=== PATIENT | male | born 1945 | race Caucasian/White ===

== ENCOUNTER 2016-08-14 09:17 | Inpatient (IN) | payer OTHER, MEDICAID ==
[~2016-08-14] VITALS: Ht 167.6 cm; Wt 108.4 kg
[~2016-08-14 09:17] MED LIST: DEPAKOTE ER500 MG PO; DESYREL50 MG PO; FLOMAX0.4 MG PO; FOLATE1 MG PO; GEODON60 MG PO; IMODIUM2 MG PO; KLONOPIN0.5 MG PO; LEXAPRO10 MG PO; LIPITOR10 MG PO; LOMOTIL 0.025 M1 TA1 PO; MICROZIDE12.5 MG PO; NAMENDA XR14 MG PO; NEXIUM40 MG PO; NORCO 10/325 MG1 TAB PO; PROTONIX40 MG PO; ULTRAM50 MG PO; VASOTEC10 MG PO; WELLBUTRIN SR150 MG PO; ZESTRIL10 MG PO; ZOCOR20 MG PO
[2016-08-14 09:20] VITALS: BP 117/62
--- NOTE | 2016-08-14 09:20 | NUR ---
70/M 70 YO MALE BIB EMS FROM HOME FOR LEFT ARM PAIN FROM IV BEING REMOVED YESTERDAY. AWAKE AND ALERT. POOR HISTORIAN. WAITING FOR 'S ARRIVAL. LEFT AC REDNESS, TENDERAND FIRM. DENIES N/V/D; SKIN IS PINK/WARM/DRY; AAOX2 WITH EVEN AND STEADY GAIT; LUNGS CLEAR BL; HR EVEN AND REGULAR; PT DENIES ANY FEVER, CP, SOB, OR COUGH AT THIS TIME; PATIENT STATES PAIN OF 10/10 AT THIS TIME; VSS; PATIENT POSITIONED FOR COMFORT; HOB ELEVATED; BEDRAILS UP X2; BED DOWN. ER MD MADE AWARE OF PT STATUS. Addendum: 08/14/16 at 0958 by [facility] [employer] 70/M 70 YO MALE BIB EMS FROM HOME FOR LEFT ARM PAIN FROM IV BEING REMOVED YESTERDAY. AWAK AND ALERT. POOR HISTORIAN. WAITING FOR 'S ARRIVAL. LEFT AC REDNESS, TENDER AND FIRM. DENIES N/V/D; SKIN IS PINK/WARM/DRY. SCATTERED BRUISING TO BUE/BUE, SCAB TO RIGHT MEIDAL ANKLE. PITTING EDEMA +2 BLE; AAOX2. PT STATES AMBULATES AND USES WC AT HOME; LUNGS DIMINISHED THROUGHOUT BL; HR EVEN AND REGULAR; PT DENIES ANY FEVER, CP, SOB, OR COUGH AT THIS TIME; PATIENT STATES PAIN OF 10/10 AT THIS TIME; VSS; PATIENT POSITIONED FOR COMFORT; HOB ELEVATED; BEDRAILS UP X2; BED DOWN. ER MD MADE AWARE OF PT STATUS.
--- NOTE | 2016-08-14 09:23 | NUR ---
Patient being evaluated by physician at bedside.
[2016-08-14] MEDS ORDERED: KETOROLAC 60 MG/2 ML VIAL IM ONE (09:30)
--- NOTE | 2016-08-14 09:45 | NUR ---
US AT BEDSIDE.
[2016-08-14] MEDS ORDERED: ACETAMINOPHEN EXTRA STRENGTH 500 MG TAB PO ONE (10:00)
--- NOTE | 2016-08-14 10:07 | NUR ---
XRAY AT BEDSIDE.
--- NOTE | 2016-08-14 10:30 | NUR ---
LAB AT BEDSIDE.
--- NOTE | 2016-08-14 10:40 | NUR ---
PULSE OX REMAIN IN HIGH 70'S, LOW 80'S. HOB PLACED 90 DEGREES, CPT PROVIDED, PT ENCOURAGED TO DEEP BREATHE AND COUGH. PULSE STILL IN LOW 80'S. DR. DUDLEY MADE AWARE. NEW ORDER FOR OXYGEN.
--- NOTE | 2016-08-14 10:42 | NUR ---
RT NOTIFIED FOR ABG. PT ATTEMPTING TO URINATE. URINAL PLACED AT BEDSIDE.
--- NOTE | 2016-08-14 10:45 | NUR ---
2L VIA N/C PLACED ON PT, PULSE OX 96%
[2016-08-14] MEDS ORDERED: ACETAMINOPHEN 325 MG TAB PO PRN (11:30)
[2016-08-14] MEDS ORDERED: IPRATROPIUM 0.02% 0.5 MG/2.5 ML NEBU INH ONE (11:30)
[2016-08-14] MEDS ORDERED: ALBUTEROL 0.083% 2.5 MG/3 ML NEBU INH ONE (11:30)
[2016-08-14] MEDS ORDERED: MORPHINE SULFATE 2 MG/ML SYR IVP PRN (11:30)
[2016-08-14] MEDS ORDERED: HYDROcodone/APAP 7.5/325 MG 1 TAB PO PRN (11:30)
[2016-08-14] MEDS ORDERED: ONDANSETRON 4 MG/2 ML VIAL IVP PRN (11:30)
--- NOTE | 2016-08-14 11:41 | NUR ---
ADMITTING DX: ARM PAIN C/O SOB AWAKE AND ALERT RESPONSIVE TO ENGINEER [employer] DEPLOYMENT VERBAL COMMANDS IN [facility] POSITION EDUCATION PROVIDED TO PATIENT WITH ACKNOWLEDGEMENT ON HHN THERAPY AND RESPIRATORY DRUGS HHN THERAPY GIVEN AT THIS TIME ENCORAGED DEEP AND COUGH DURING THERAPY TOLERATED WELL WITHOUT INCIDENT
[2016-08-14] MEDS ORDERED: NACL 0.9% 1,000 ML IV ONE (12:00)
[2016-08-14] MEDS ORDERED: cefTRIAXone 1,000 MG VIAL ONE (12:39)
--- NOTE | 2016-08-14 13:36 | NUR ---
Patient will be admitted to care of DR. REARDON. Admited to TELE. Will go to room 111A. Belongings list completed. Report to CARLEEN MARES.
--- NOTE | 2016-08-14 13:40 | NUR ---
RECEIVED REPORT FROM THE ER NURSE SERGE FOR CONTINUITY OF CARE. PATIENT IS AWAKE, ALERT, ORIENTEDX4. UNABLE TO PROPERLY ASSES BECAUSE PATIENT IS IRRITATED STATING "I DON'T WANT TO ANSWER SO MANY QUESTION. I'M NOT FEELING GOOD". VITALS TAKEN AND WITHIN THE NORMAL LIMIT. ON 2L O2 VIA NASAL CANNULA. O2 SAT IS 94%. NO SOB. UNLABORED BREATHING. REDNESS ON THE LEFT AC AND BRUISES ON ABDOMEN AND UPPER EXTREMITIES OTHER DEJESUS SKIN INTACT. IV ON THE RIGHT UPPER FOREARM, INTACT AND PATENT. FLUID INFUSING WELL. ORIENTED TO THE ROOM AND CALL LIGHT. SAFETY MEASURE CHECKED AND WILL CONTINUE TO MONITOR. CALL LIGHT WITHIN REACH.
[2016-08-14] MEDS ORDERED: LORazepam 2 MG/ML VIAL IM/IVP SCH (15:12)
--- NOTE | 2016-08-14 15:12 | NUR ---
ATIVAN GIVEN PRIOR TO VQ SCAN. PATIENT TOLERATED WELL. FAMILY AT BEDSIDE. CALL LIGHT WITHIN REACH.
[2016-08-14] MEDS ORDERED: ALBUTEROL 0.083% 2.5 MG/3 ML NEBU INH PRN (16:15)
[2016-08-14] MEDS ORDERED: FUROSEMIDE 40 MG/4 ML VIAL IVP SCH (16:34)
[2016-08-14] MEDS: PIPER/TAZO 3.375GM/D5W PREMIX 50 ML IV SCH ×2 (17:12→23:59)
--- NOTE | 2016-08-14 17:53 | NUR ---
PATIENT HAD BOWEL MOVEMENT AND URINATE IN BED. CLEANED AND TURNED PATIENT. CALL LIGHT WITHIN REACH.
[2016-08-14] MEDS ORDERED: MAG SULF 2000 MG/WATER PREMIX 50 ML IV SCH (18:13)
[2016-08-14] MEDS ORDERED: SODIUM PHOS / POTASSIUM PHOS 1 PKT PDR PO SCH (18:16)
--- NOTE | 2016-08-14 18:55 | NUR ---
MAG RIDER GIVEN FOR LOW MAG OF 1.3L. PATIENT TOLERATING WELL. CALL LIGHT WITHIN REACH.
[2016-08-14] MEDS: ALBUTEROL 0.083% 2.5 MG/3 ML NEBU INH SCH (19:00)
[2016-08-14] MEDS: BUDESONIDE 0.5 MG/2 ML NEBU INH SCH (19:30)
--- NOTE | 2016-08-14 19:35 | NUR ---
ENDORSED PLAN OF CARE TO NIGHT RN. PT REMAINS IN STABLE CONDITION.
--- NOTE | 2016-08-14 19:36 | NUR ---
RECEIVED REPORT FROM DAY NURSEMARGIE) AND MICHELLE. PATIENT RESTING IN BED. NO RESPIRATORY DISTRESS, SOB, OR DISCOMFORT. INITIAL ASSESSMENT AND BODY CHECK DONE. PATIENT IS AOX3, PERIODS OF CONFUSION. SKIN IS INTACT, REDNESS NOTED TO LEFT AC AREA, IV ACCESS TO RIGHT FOREARM 20G, PATENT. DISCUSSED PLAN OF CARE, MEDICATION REGIMENT, AND PAIN MANAGEMENT WITH PATIENT. PLACED PATIENT ON SAFETY/FALL PRECAUTIONS. CALL LIGHT LEFT WITHIN REACH, WILL CONTINUE TO MONITOR.
--- NOTE | 2016-08-14 19:38 | NUR ---
PT REFUSED HIS TX. NO DISTRESS/SOB NOTED AT THIS TIME. WILL CONTINUE TO MONITOR.
[2016-08-14 20:00] VITALS: BP 129/65
[2016-08-14] MEDS: SACCHAROMYCES 250 MG CAP PO SCH (21:10)
[2016-08-14] MEDS: MEMANTINE 10 MG TAB PO SCH (21:10)
[2016-08-14] MEDS: ENALAPRIL 10 MG TAB PO SCH (21:10)
[2016-08-14] MEDS: ATORVASTATIN 20 MG TAB PO SCH (21:11)
[2016-08-14] MEDS: clonazePAM 0.5 MG TAB PO SCH (21:12)
--- NOTE | 2016-08-14 22:05 | NUR ---
PATIENT IN BED, SLEEPING. NO RESPIRATORY DISTRESS, SOB, OR DISCOMFORT. CALL LIGHT LEFT WITHIN REACH, WILL CONTINUE TO MONITOR.
--- NOTE | 2016-08-14 23:10 | NUR ---
PT REFUSED TX AGAIN. SAT 93% ON 2 L NC. HR 1036. RN NONA AWARE. WILL CONTINUE TO MONITOR.
[2016-08-15] VITALS: BP 123/60
[2016-08-15] MEDS: ALBUTEROL 0.083% 2.5 MG/3 ML NEBU INH SCH ×4 (00:37→20:02)
--- NOTE | 2016-08-15 00:56 | NUR ---
PATIENT ASLEEP. NO RESPIRATORY DISTRESS, SOB, OR DISCOMFORT. CALL LIGHT LEFT WITHIN REACH, WILL CONTINUE TO MONITOR.
--- NOTE | 2016-08-15 03:03 | NUR ---
PATIENT SLEEPING. NO RESPIRATORY DISTRESS, SOB, OR DISCOMFORT. CALL LIGHT LEFT WITHIN REACH, WILL CONTINUE TO MONITOR.
[2016-08-15 04:00] VITALS: BP 114/51
[2016-08-15] MEDS: PIPER/TAZO 3.375GM/D5W PREMIX 50 ML IV SCH ×4 (05:29→23:30)
--- NOTE | 2016-08-15 06:06 | NUR ---
PATIENT IN BED, ASLEEP. NO RESPIRATORY DISTRESS, SOB, OR DISCOMFORT. CALL LIGHT LEFT WITHIN REACH, WILL CONTINUE TO MONITOR.
--- NOTE | 2016-08-15 07:05 | NUR ---
REPORT GIVEN TO DAY NURSE, CELESTE (MARCIA) AND ALMA. PATIENT RESTING IN BED, STABLE. NO RESPIRATORY DISTRESS, SOB, OR DISCOMFORT. ALL NEEDS ATTENDED TO DURING SHIFT, CALL LIGHT LEFT WITHIN REACH.
--- NOTE | 2016-08-15 07:08 | NUR ---
RECEIVED PT FROM NONA Ramesh RN ASLEEP BUT EASILY AWAKEN. NO S/S OF RESPIRATORY DISTRESS OR DISCOMFORT. AAOX3, NO S/S OF RESPIRATORY DISTRESS OR DISCOMFORT. WITH IV ACCESS ON RIGHT UPPER FOREARM 20G PATENT AND INTACT. INITIAL ASSESSMENT DONE, SAFETY PRECAUTIONS ENFORCED, PT VERBALIZED UNDERSTANDING. CALL LIGHT WITHIN REACH, WILL CONTINUE TO MONITOR.
[2016-08-15] MEDS: BUDESONIDE 0.5 MG/2 ML NEBU INH SCH ×2 (07:29→19:30)
--- NOTE | 2016-08-15 07:30 | NUR ---
PT REFUSED BREATHING TX AT THIS TIME. PT NOT SOB AND NOT IN RESPIRATORY DISTRESS. PT IS ON 3L NASAL CANNULA SPO2 95%. WILL CONTINUE TO MONITOR.
[2016-08-15 08:00] VITALS: BP 143/72
[2016-08-15] MEDS: FUROSEMIDE 40 MG/4 ML VIAL IVP SCH (08:46)
[2016-08-15] MEDS: clonazePAM 0.5 MG TAB PO SCH ×2 (08:51→20:25)
[2016-08-15] MEDS: SACCHAROMYCES 250 MG CAP PO SCH ×2 (08:52→20:23)
[2016-08-15] MEDS: ESCITALOPRAM 20 MG TAB PO SCH (08:53)
[2016-08-15] MEDS: PANTOPRAZOLE 40 MG TABEC PO SCH (08:54)
[2016-08-15] MEDS: ENALAPRIL 10 MG TAB PO SCH ×2 (08:55→20:24)
[2016-08-15] MEDS: FOLIC ACID 1 MG TAB PO SCH (08:56)
[2016-08-15] MEDS: FAMOTIDINE 20 MG TAB PO SCH (09:00)
[2016-08-15] MEDS: MEMANTINE 10 MG TAB PO SCH ×2 (09:00→20:23)
--- NOTE | 2016-08-15 09:00 | NUR ---
PT ASLEEP BUT EASILY AWAKENED. DUE MEDS GIVEN, PT TOLERATED WELL. CALL LIGHTS WITHIN REACH, WILL CONTINUE TO MONITOR.
[2016-08-15] MEDS: DOCUSATE SODIUM 100 MG GELCAP PO SCH (09:02)
[2016-08-15] MEDS: SODIUM PHOS / POTASSIUM PHOS 1 PKT PDR PO SCH ×3 (09:03→17:14)
--- NOTE | 2016-08-15 09:18 | NUR ---
PATIENT HAS BEEN SCREENED AND CATEGORIZED MODERATE NUTRITION RISK. PATIENT WILL BE SEEN WITHIN 3-5 DAYS OF ADMISSION. 08/16/16-08/18/[address]
--- NOTE | 2016-08-15 10:08 | NUR ---
PT SLEEPING BUT EASILY AWAKENED. CALL LIGHT WITHIN REACH, WILL CONTINUE TO MONITOR.
[2016-08-15] MEDS ORDERED: NACL 0.9% 1,000 ML IV SCH (10:25)
[2016-08-15 12:00] VITALS: BP 132/84
[2016-08-15] MEDS ORDERED: POTASSIUM CHLORIDE 40 MEQ, LIDOCAINE 1% 25 MG in NACL 0.9% 250 ML IV SCH (12:00)
--- NOTE | 2016-08-15 12:07 | NUR ---
FAXED INITIAL REVIEW TO [facility] [phone] PHONE SHAYY HUMPHRIES [phone]
--- NOTE | 2016-08-15 12:15 | NUR ---
PT AWAKE SITTING ON BED WITH RELATIVES AT BEDSIDE. AAOX3 WITH PERIODS OF CONFUSION, NO S/S OF RESPIRATORY DISCOMFORT. CALL LIGHT WITHIN REACH, WILL CONTINUE TO MONITOR.
--- NOTE | 2016-08-15 14:05 | NUR ---
PT ASLEEP BUT EASILY AWAKEN. NO S/S OF RESPIRATORY DISTRESS OR DISCOMFORT. ALL NEEDS MET AT THIS TIME. CALL LIGHT WITHIN REACH. WILL CONTINUE TO MONITOR
--- NOTE | 2016-08-15 14:58 | NUR ---
SPOKE TO DR. CARLOS REGARDING BLOOD CULTURE. TO SEE PT
--- NOTE | 2016-08-15 15:30 | NUR ---
URINE SAMPLE OBTAINED. KEPT PT CLEAN AND DRY. NO S/S OF RESPIRATORY DISCOMFORT. CALL LIGHT WITHIN REACH, WILL CONTINUE TO MONITOR.
[2016-08-15 16:00] VITALS: BP 119/66
--- NOTE | 2016-08-15 17:15 | NUR ---
PT ASLEEP BUT EASILY AWAKEN. DUE MEDS GIVEN, PT TOLERATED WELL. KEPT CLEAN AND DRY. ALL NEEDS MET AT THIS TIME. CALL LIGHT WITHIN REACH, WILL CONTINUE TO MONITOR.
[2016-08-15] MEDS ORDERED: TAMSULOSIN 0.4 MG CAP PO SCH (17:30)
--- NOTE | 2016-08-15 19:06 | NUR ---
ENDORSED PT TO Gadiel CASTELLANO RN FOR CONTINUITY OF CARE IN STABLE CONDITION.
--- NOTE | 2016-08-15 19:10 | NUR ---
REPORT RECEIVED FROM DAY NURSECELESTE ([facility]) AND ALMA. PATIENT RESTING IN BED. NO RESPIRATORY DISTRESS, SOB, OR DISCOMFORT. INITIAL ASSESSMENT AND BODY CHECK DONE. PATIENT IS AOX3, WITH PERIODS OF CONFUSION, SKIN IS INTACT, IV ACCESS TO RIGHT FOREARM 20G, PATENT. PATIENT DENIES ANY PAIN AT THIS TIME. DISCUSSED PLAN OF CARE, MEDICATION REGIMENT, AND PAIN MANAGEMENT WITH PATIENT. PLACED PATIENT ON SAFETY/FALL PRECAUTIONS. CALL LIGHT LEFT WITHIN REACH, WILL CONTINUE TO MONITOR.
[2016-08-15 20:00] VITALS: BP 120/66
--- NOTE | 2016-08-15 20:03 | NUR ---
PT ASSESSMENT DONE, AWAKE, ALERT, REFUSED HHNTX AT THIS TIME. PT ON 3LPM NC, TOLERATING WELL, NO RESP DISTRESS NOTED. SP02 95%. PT WILL CALL IF WANTS HHNTX. NONA DURANT AWARE.
[2016-08-15] MEDS: ATORVASTATIN 20 MG TAB PO SCH (20:23)
--- NOTE | 2016-08-15 22:10 | NUR ---
PATIENT IN BED, SLEEPING. NO RESPIRATORY DISTRESS, SOB, OR DISCOMFORT. CALL LIGHT LEFT WITHIN REACH, WILL CONTINUE TO MONITOR.
[2016-08-16] VITALS: BP 119/81
[2016-08-16] MEDS: ALBUTEROL 0.083% 2.5 MG/3 ML NEBU INH SCH ×2 (01:00→06:53)
--- NOTE | 2016-08-16 01:07 | NUR ---
PATIENT ASLEEP. NO RESPIRATORY DISTRESS, SOB, OR DISCOMFORT. CALL LIGHT LEFT WITHIN REACH, WILL CONTINUE TO MONITOR.
--- NOTE | 2016-08-16 03:20 | NUR ---
ASSISTED MORTGAGE ADVISOR'S, BLANCA AND TANIKA, WITH PATIENT CLEAN UP AND LINEN CHANGE. PATIENT TOLERATED WELL. NO RESPIRATORY DISTRESS, SOB, OR DISCOMFORT. CALL LIGHT LEFT WITHIN REACH, WILL CONTINUE TO MONITOR.
[2016-08-16 04:00] VITALS: BP 135/77
[2016-08-16] MEDS: PIPER/TAZO 3.375GM/D5W PREMIX 50 ML IV SCH (05:32)
--- NOTE | 2016-08-16 06:02 | NUR ---
PATIENT SLEEPING. NO RESPIRATORY DISTRESS, SOB, OR DISCOMFORT. CALL LIGHT LEFT WITHIN REACH, WILL CONTINUE TO MONITOR.
[2016-08-16] MEDS: BUDESONIDE 0.5 MG/2 ML NEBU INH SCH (06:53)
--- NOTE | 2016-08-16 06:53 | NUR ---
PT REFUSED BREATHING TX AND ABG AT THIS TIME. PT NOT SOB AND NOT IN RESPIRATORY DISTRESS AT THIS TIME. EXPLAINED INDICATIONS FOR BOTH PT STILL REFUSED. WILL CONTINUE TO MONITOR.
--- NOTE | 2016-08-16 07:05 | NUR ---
REPORT GIVEN TO DAY NURSE, DUDLEY. PATIENT RESTING IN BED, STABLE. NO RESPIRATORY DISTRESS, SOB, OR DISCOMFORT. ALL NEEDS ATTENDED TO DURING SHIFT, CALL LIGHT LEFT WITHIN REACH.
--- NOTE | 2016-08-16 07:06 | NUR ---
PT ALERT AND RESPONSIVE WITH PERIODS OF CONFUSION. BREATHING EVENLY AND UNLABORED, WITH O2 AT 2L/MIN VIA NC. NO SIGNS OF ACUTE DISTRESS. SKIN IS WARM AND DRY. OFFLOAD TO PRESSURE AREAS. NO SIGNS OF ANY BOWEL/BLADDER DISCOMFORT. DENIES OF ANY PAIN OR DISCOMFORT AT THIS TIME. ALL NEEDS ATTENDED, SAFETY PRECAUTIONS MAINTAINED. CALL LIGHT WITHIN REACH.
[2016-08-16 07:49] VITALS: BP 127/70
--- NOTE | 2016-08-16 08:23 | NUR ---
ABG RESULTS GIVEN TO NO NEW ORDERS REQUESTED BY PHYSICIAN.
[2016-08-16] MEDS: DOCUSATE SODIUM 100 MG GELCAP PO SCH (08:43)
[2016-08-16] MEDS: ESCITALOPRAM 20 MG TAB PO SCH (08:43)
[2016-08-16] MEDS: clonazePAM 0.5 MG TAB PO SCH (08:44)
[2016-08-16] MEDS: FAMOTIDINE 20 MG TAB PO SCH (08:44)
[2016-08-16] MEDS: FOLIC ACID 1 MG TAB PO SCH (08:44)
[2016-08-16] MEDS: SACCHAROMYCES 250 MG CAP PO SCH (08:44)
[2016-08-16] MEDS: ENALAPRIL 10 MG TAB PO SCH (08:44)
[2016-08-16] MEDS: PANTOPRAZOLE 40 MG TABEC PO SCH (08:44)
[2016-08-16] MEDS: MEMANTINE 10 MG TAB PO SCH (08:44)
[2016-08-16] MEDS: SODIUM PHOS / POTASSIUM PHOS 1 PKT PDR PO SCH (08:45)
[2016-08-16] MEDS: FUROSEMIDE 40 MG/4 ML VIAL IVP SCH (08:46)
[2016-08-16] MEDS ORDERED: CHLORHEXADINE GLUC 2% CLOTH TP SCH (09:00)
--- NOTE | 2016-08-16 09:33 | NUR ---
PT REQUESTS TO SIGN AMA, EXPLAINED RISKS AND BENEFITS AT BEDSIDE WITH DR. PINEDA. PT VERBALIZED UNDERSTANDING. SIGNED AMA AND PT'S TO PICKUP PATIENT WITHIN 1 HOUR PER PT.
[2016-08-16] MEDS ORDERED: MUPIROCIN 2% OINT 22 GM TUBE TP SCH (10:00)
--- NOTE | 2016-08-16 10:30 | NUR ---
PT LEFT UNIT WITH VIA WC. IV LINE TELE LEADS AND WRIST BANDS REMOVED. PERSONAL BELONGINGS WITH PT UPON LEAVING UNIT.
[2016-08-16] MEDS ORDERED: HYDRAGUARD CREAM TP SCH (13:00)
== END 2016-08-16 10:30 | disposition left against medical advice (07) | DRG 177 ==
LOC: MED 09:17 → MTU 11:18
PROVIDERS: ADMIT Family Medicine; ATTEND Family Medicine
DX: J69.0 Pneumonitis due to inhalation of food and vomit (principal); E43 Unspecified severe protein-calorie malnutrition; J96.21 Acute and chronic respiratory failure with hypoxia; J90 Pleural effusion, not elsewhere classified; I80.8 Phlebitis and thrombophlebitis of other sites; F31.9 Bipolar disorder, unspecified; F03.90 Unspecified dementia, unspecified severity, without behavioral disturbance, psychotic disturbance, mood disturbance, and anxiety; E66.9 Obesity, unspecified; E87.6 Hypokalemia; E83.51 Hypocalcemia; E83.42 Hypomagnesemia; E83.39 Other disorders of phosphorus metabolism; N40.0 Benign prostatic hyperplasia without lower urinary tract symptoms; E11.9 Type 2 diabetes mellitus without complications; F20.9 Schizophrenia, unspecified; K21.9 Gastro-esophageal reflux disease without esophagitis; I11.0 Hypertensive heart disease with heart failure; I50.9 Heart failure, unspecified; J44.9 Chronic obstructive pulmonary disease, unspecified; Z71.3 Dietary counseling and surveillance; Z91.19 Patient's noncompliance with other medical treatment and regimen; Z90.49 Acquired absence of other specified parts of digestive tract; Z68.38 Body mass index [BMI] 38.0-38.9, adult; Z88.2 Allergy status to sulfonamides; Z79.899 Other long term (current) drug therapy

== ENCOUNTER 2016-08-22 10:05 | Inpatient (IN) | payer OTHER, MEDICAID ==
[~2016-08-22] VITALS: Ht 167.6 cm; Wt 107.5 kg
[2016-08-22 10:10] VITALS: BP 135/78
--- NOTE | 2016-08-22 10:15 | NUR ---
PT BIBA TO ER BED 01.
--- NOTE | 2016-08-22 10:15 | NUR ---
Note undone in EDM - 08/22/16 at 1131 by MEDCHINMAYF PATIENT PRESENTS TO ED WITH [] . PT STATES [] . DENIES N/V/D; SKIN IS PINK/WARM/DRY; AAOX4 WITH EVEN AND STEADY GAIT; LUNGS CLEAR BL; HR EVEN AND REGULAR; PT DENIES ANY FEVER, CP, SOB, OR COUGH AT THIS TIME; PATIENT STATES PAIN OF 0/10 AT THIS TIME; VSS; PATIENT POSITIONED FOR COMFORT; HOB ELEVATED; BEDRAILS UP X2; BED DOWN. ER MADE AWARE OF PT STATUS. PT BIBA DUE TO ALOC.FAMILY STATES PATIENT WAS UNRESPONSIVE "FOR 10 SECONDS" PER EMS. Hx HTN, DEPRESSION, AND HYPERCHOLESTEROLEMIA; TAKES LISINOPRIL AND SIMVASTATIN. HAS MULTIPLE BRUISES ON RIGHT ABDOMEN. BALNCAHBLE REDNESS ON LEFT ARM.PT IS AA AND CONFUSE. WITH SLIGHT EDEMA ON BOTH FEET.SKIN IS PINK/WARM/DRY,EVEN AND STEADY GAIT; LUNGS CLEAR BL; HR EVEN AND REGULAR; NO COUGH COUGH AT THIS TIME; PATIENT STATES PAIN IN ARM OF 10/10 AT THIS TIME; PATIENT POSITIONED FOR COMFORT; HOB ELEVATED; BEDRAILS UP X2; BED DOWN. PETR FRANCO MADE AT BEDSIDE. Addendum: 08/22/16 at 1105 by MEDTRF Amendment undone in EDM - 08/22/16 at 1131 by MEDTRF PT BIBA DUE TO ALOC.FAMILY STATES PATIENT WAS UNRESPONSIVE "FOR 10 SECONDS" PER EMS. Hx HTN, DEPRESSION, AND HYPERCHOLESTEROLEMIA; TAKES LISINOPRIL AND SIMVASTATIN. HAS MULTIPLE BRUISES ON RIGHT ABDOMEN. BLANCAHABLE REDNESS ON LEFT ARM.PT IS AA AND CONFUSE. WITH SLIGHT EDEMA ON BOTH FEET.SKIN IS PINK/WARM/DRY; LUNGS CLEAR BL; HR EVEN AND REGULAR;PATIENT STATES PAIN OF 10/10 AT THIS TIME; PATIENT POSITIONED FOR COMFORT; HOB ELEVATED; BEDRAILS UP X2; BED DOWN. ER MD AT BEDSIDE.
--- NOTE | 2016-08-22 10:15 | NUR ---
PT BIBA DUE TO ALOC.FAMILY STATES PATIENT WAS UNRESPONSIVE "FOR 10 SECONDS" PER EMS. Hx HTN, DEPRESSION, AND HYPERCHOLESTEROLEMIA; TAKES LISINOPRIL AND SIMVASTATIN. HAS MULTIPLE BRUISES ON RIGHT ARM AND ABDOMEN. BLANCAHABLE REDNESS ON LEFT ARM.PT IS AA AND CONFUSE. WITH SLIGHT EDEMA ON BOTH FEET.SKIN IS PINK/WARM/DRY; LUNGS CLEAR BL; HR EVEN AND REGULAR;PATIENT STATES PAIN OF 10/10 AT THIS TIME; PATIENT POSITIONED FOR COMFORT; HOB ELEVATED; BEDRAILS UP X2; BED DOWN. ER MD AT BEDSIDE.
--- NOTE | 2016-08-22 10:35 | NUR ---
Patient being evaluated by physician at bedside.
--- NOTE | 2016-08-22 10:52 | NUR ---
X RAY AT BEDSIDE
--- NOTE | 2016-08-22 11:14 | NUR ---
TALKED TO DR HERNANDEZ ,PER DR DENTON JUST DO IN AMD OUT.
--- NOTE | 2016-08-22 11:21 | NUR ---
DR. HERNANDEZ AWARE OF THE RESULT OF URINE DIPSTICK
--- NOTE | 2016-08-22 11:27 | NUR ---
PT AA. NO ACUTE DISTRESS NOTED. PT WENT TO CT SCAN.
--- NOTE | 2016-08-22 11:30 | NUR ---
IN AND OUT CATH DONE , NO BLEEDING NOTED
--- NOTE | 2016-08-22 11:32 | NUR ---
PT WENT TO CT VIA [facility] [employer] BY [employer].
[2016-08-22] MEDS ORDERED: hePARIN / DEXT 5% PREMIX 250 ML IV ONE (12:15)
[2016-08-22] MEDS ORDERED: CLOPIDOGREL 75 MG TAB PO ONE (12:15)
[2016-08-22] MEDS ORDERED: HEPARIN PER PHARMACY MC PRN ×2 (12:15→13:15)
[2016-08-22] MEDS ORDERED: VANCOMYCIN 1,000 MG in DEXTROSE 5% 250 ML IV ONE (12:35)
[2016-08-22] MEDS ORDERED: PIPERACILLIN/TAZOBACTAM 3.375 GM in DEXTROSE 5% 50 ML IV ONE (12:35)
--- NOTE | 2016-08-22 12:36 | NUR ---
US AT BEDSIDE
[2016-08-22] MEDS ORDERED: PIPERACILLIN/TAZOBACTAM 3.375 GM VIAL IV ONE (12:42)
--- NOTE | 2016-08-22 13:01 | NUR ---
TALKED TO DR. SULLIVAN HE SAID HE WILL ORDER THE HEPARIN IN THE FLOOR,MADE AWARE IV ZOSYN ONGOING AT THIS TIME FOR LEFT ARM CELLULITIS,PHARMACIST JUSTICE KUMAR
--- NOTE | 2016-08-22 13:02 | NUR ---
CALL PLACE TO TELE SPOKE TO ADA FOR REPORT WILL CALL ME BACK
[2016-08-22] MEDS ORDERED: hePARIN / DEXT 5% PREMIX 250 ML IV SCH ×2 (13:15→13:32)
--- NOTE | 2016-08-22 13:24 | NUR ---
REPORT GIVEN TO ADA IN TELE, TRANSFER PT TO TELE AA WITH FORGETFULNESS, NO DISTRESS, SKIN WARM TO TOUCH RESP. EVEN AND UNLABORED.
--- NOTE | 2016-08-22 13:35 | NUR ---
ADMITTED PATIENT FROM ER, COMING VIA GURNEY . WITH 02 VIA UT, NO DISTRESS NOTED.PATIENT AWAKE, ALERT , FORGETFUL ( HAS HX OF DEMENTIA) . WITH IV FLUIDS INFUSING WELL. HAS EDEMA AND REDNESS LEFT ARM . EDEMA BOTH LEGS. DENIES PAIN AT THIS TIME . UNIT ORIENTATION DONE. NPO . WILL CONTINUE MONITORING.
--- NOTE | 2016-08-22 13:50 | NUR ---
PT REFUSED ABG AT THIS TIME DR SULLIVAN AWARE
[2016-08-22] MEDS: NACL 0.9% 1,000 ML IV SCH (14:12)
[2016-08-22] MEDS ORDERED: VANCOMYCIN 1GM/DEXT 5% PREMIX 200 ML IV SCH (14:20)
[2016-08-22 16:00] VITALS: BP 143/73
--- NOTE | 2016-08-22 16:00 | NUR ---
PERINEAL CARE DONE AFTER PATIENT HAD BM.
[2016-08-22] MEDS: LEVOFLOXACIN 750 MG/D5W PREMIX 150 ML IV SCH (16:14)
[2016-08-22] MEDS ORDERED: LOPERAMIDE 2 MG CAP PO SCH (16:55)
[2016-08-22] MEDS ORDERED: HYDROcodone/APAP 10/325 MG 1 TAB TAB PO PRN (16:55)
[2016-08-22] MEDS ORDERED: HYDROcodone/APAP 10/325 MG 1 TAB TAB PO SCH (16:55)
[2016-08-22] MEDS ORDERED: DIPHENOXYLATE /ATROPINE 2.5 MG TAB PO PRN (17:00)
--- NOTE | 2016-08-22 17:00 | NUR ---
FAMILY AT BEDSIDE.
--- NOTE | 2016-08-22 18:30 | NUR ---
CHARU/KIDNEY US IN PROGRESS.
--- NOTE | 2016-08-22 19:30 | NUR ---
REPORT GIVEN AT BEDSIDE TO GABRIELLA STEWARD , FOR CONTINUITY OF CARE.
--- NOTE | 2016-08-22 19:35 | NUR ---
PT WAS CLEANED BY JANAY MARCUS AND JANAY VILLANUEVA AND WAS TURNED AND REPOSITIONED AND THEN CONDOM CATHETER WAS PLACED ON THE PATIENT AND CONNECTED TO A URINE DRAINAGE BAG.PT TOLERATED PROCEDURE WELL.WILL CONTINUE TO MONITOR URINE OUTPUT.PT DENIES PAIN AT THIS TIME.NO SOB REPORTED BY THE PATIENT.NO COMPLAINS OF CHEST PAIN REPORTED EITHER.FALL PRECAUTIONS IMPLEMENTED.CALL LIGHT WITHIN REACH.
--- NOTE | 2016-08-22 20:00 | NUR ---
Patient's Plan of Care was discussed and reviewed with TRANSITION SPECIALIST: NICHELLE GALEANO.
[2016-08-22 20:15] VITALS: BP 98/74
[2016-08-22] MEDS: DIVALPROEX 500 MG TABEC PO SCH (20:45)
[2016-08-22] MEDS: buPROPion 150 MG TABER PO SCH (20:45)
[2016-08-22] MEDS: SACCHAROMYCES 250 MG CAP PO SCH (20:45)
--- NOTE | 2016-08-22 20:45 | NUR ---
PT TOOK HIS ROUTINE MEDICATION WELL AND DRANK SOME WATER.WILL CONTINUE TO MONITOR.CALL LIGHT WITHIN REACH.
[2016-08-22] MEDS: traMADol 50 MG TAB PO SCH (20:46)
[2016-08-22] MEDS: SIMVASTATIN 20 MG TAB PO SCH (20:46)
[2016-08-22] MEDS: traZODone 50 MG TAB PO SCH (20:46)
[2016-08-22] MEDS: clonazePAM 0.5 MG TAB PO SCH (20:48)
[2016-08-22] MEDS ORDERED: ENALAPRIL 10 MG TAB PO SCH (21:00)
[2016-08-22] MEDS ORDERED: ZIPRASIDONE 40 MG CAP PO SCH (21:00)
[2016-08-22] MEDS ORDERED: ATORVASTATIN 20 MG TAB PO SCH (21:00)
--- NOTE | 2016-08-22 21:25 | NUR ---
MD ROGERS CAME TO SEE THE PATIENT.
[2016-08-22] MEDS: CLINDAMYCIN 600 MG in DEXTROSE 5% 50 ML IV SCH (22:29)
--- NOTE | 2016-08-22 22:30 | NUR ---
NEW IV LINE WAS RESTARTED TO PT'S RT ANTERIOR FOREARM G#22 AT FIRST ATTEMPT WITH GOOD BLOOD RETURN AND THRU THIS LINE PT WILL RECEIVE HIS ANTIBIOTIC BY CARLEEN TREVINO SHE HAS BEEN INFORMED THAT PT HAS ANOTHER IV LINE.
--- NOTE | 2016-08-23 00:48 | NUR ---
PT SLEEPING IN BED AT THIS TIME,HEPARIN INFUSING WELL,NO PAIN OR DISCOMFORT NOTED.WILL CONTINUE TO MONITOR.CALL LIGHT WITHIN REACH.
[2016-08-23 00:55] VITALS: BP 111/65
[2016-08-23] MEDS: NACL 0.9% 1,000 ML IV SCH ×4 (01:11→15:55)
--- NOTE | 2016-08-23 02:38 | NUR ---
PT IS CURRENTLY ASLEEP IN BED,HEPARIN DRIP INFUSING WELL,NEEDS MET,BED ALARM ON WILL CONTINUE TO MONITOR.
[2016-08-23] MEDS: CLINDAMYCIN 600 MG in DEXTROSE 5% 50 ML IV SCH ×3 (04:04→20:25)
[2016-08-23 04:40] VITALS: BP 118/60
--- NOTE | 2016-08-23 06:00 | NUR ---
PT STABLE RESTING IN BED HEPARIN ONGOING.NO COMPLAINS OF PAIN OR DISCOMFORT.ENDORSED TO CARLEEN JONES SHE WILL RESUME CARE OF THE PATIENT. Addendum: 08/23/16 at 0730 by Chandrika Estrella LVN PT WAS ACTUALLY ENDORSED AT 07 TO CARLEEN JONES.
[2016-08-23] MEDS: traMADol 50 MG TAB PO SCH ×3 (06:21→20:57)
[2016-08-23] MEDS: PANTOPRAZOLE 40 MG TABEC PO SCH (06:23)
[2016-08-23] MEDS ORDERED: MAG SULF 2000 MG/WATER PREMIX 50 ML IV SCH (07:00)
[2016-08-23] MEDS ORDERED: POTASSIUM CHLORIDE 10 MEQ TABER PO SCH (07:00)
--- NOTE | 2016-08-23 07:25 | NUR ---
PT STABLE SLEEPING HEPARIN ONGOING REPORT ENDORSED AT BEDSIDE TO CARLEEN JONES.
--- NOTE | 2016-08-23 07:25 | NUR ---
RECEIVED REPORT FROM NIGHT NURSE. PT IS AAPX3, RIGHT IV 18 G HEP DRIP, INFUSING WELL. RIGHT FA 22G IVF INFUSING WELL, O2 2L VIA NC, SKIN INTACT, SWOLLEN LEFT ARM, BLE EDEMA , REVIEWED PLAN OF CARE WITH PT, PT VERBALIZED UNDERSTANDING, INITIAL ASSESSMENT COMPLETED, ALL SAFETY/FALL PRECAUTIONS MET, ALL NEEDS MET, CALL LIGHT WITHIN REACH, WILL CONTINUE TO MONITOR.
[2016-08-23 08:00] VITALS: BP 110/65
[2016-08-23] MEDS ORDERED: POTASSIUM CHLORIDE 40 MEQ, LIDOCAINE 1% 25 MG in NACL 0.9% 250 ML IV ONE (08:05)
[2016-08-23] MEDS ORDERED: MAG SULF 2000 MG/WATER PREMIX 50 ML IV ONE (08:05)
--- NOTE | 2016-08-23 08:14 | NUR ---
PATIENT HAS BEEN SCREENED AND CATEGORIZED MODERATE NUTRITION RISK. PATIENT WILL BE SEEN WITHIN 3-5 DAYS OF ADMISSION. 08/25/16-08/27/[address]
[2016-08-23] MEDS: ESCITALOPRAM 20 MG TAB PO SCH (08:35)
[2016-08-23] MEDS: FOLIC ACID 1 MG TAB PO SCH (08:35)
[2016-08-23] MEDS: buPROPion 150 MG TABER PO SCH ×2 (08:35→20:57)
[2016-08-23] MEDS: SACCHAROMYCES 250 MG CAP PO SCH ×2 (08:35→20:57)
--- NOTE | 2016-08-23 08:35 | NUR ---
DUE MEDICATIONS GIVEN, PT TOLERATED WELL, LISINOPRIL WAS NOT GIVEN BP 110/65, NO S/S OF RESPIRATORY DISTRESS NOTED, PT DENIES ANY SOB OR CHEST PAIN, ALL NEEDS MET, CALL LIGHT WITHIN REACH WILL CONTINUE TO MONITOR.
[2016-08-23] MEDS: DIVALPROEX 500 MG TABEC PO SCH ×2 (08:36→21:01)
[2016-08-23] MEDS: clonazePAM 0.5 MG TAB PO SCH ×2 (08:39→21:01)
--- NOTE | 2016-08-23 08:47 | NUR ---
HEPARIN DRIP ADJUSTED PER PROTOCOL TO 12.8ML/ HR . BOLUS OF 4900 GIVEN
[2016-08-23] MEDS: LISINOPRIL 10 MG TAB PO SCH (09:00)
[2016-08-23] MEDS ORDERED: LISINOPRIL 10 MG TAB PO SCH (09:00)
[2016-08-23] MEDS ORDERED: ASPIRIN 81 MG TAB.CHEW PO SCH (09:00)
[2016-08-23] MEDS ORDERED: PANTOPRAZOLE 40 MG INJ VIAL IVP SCH (09:00)
--- NOTE | 2016-08-23 10:25 | NUR ---
CHECKED IN ON PT, PT CURRENTLY SLEEPING, AND CAREGIVER AT BEDSIDE, NO S/S OF RESPIRATORY DISTRESS NOTED, CALL LIGHT WITHIN REACH, WILL CONTINUE TO MONITOR.
[2016-08-23 12:00] VITALS: BP 121/57
[2016-08-23] MEDS ORDERED: INSULIN ASPART SLIDING SCALE 100 UNITS/ML VIAL SUBQ PRN (12:35)
[2016-08-23] MEDS ORDERED: DEXTROSE 50% 50 ML SYR IVP PRN (12:35)
--- NOTE | 2016-08-23 12:35 | NUR ---
DUE MEDICATIONS GIVEN PT TOLERATED WELL, ALL NEEDS MET. AND CAREGIVER AT BEDSIDE. CALL LIGHT WITHIN REACH.
[2016-08-23] MEDS ORDERED: NAMENDA 14 MG PO SCH (13:05)
--- NOTE | 2016-08-23 14:05 | NUR ---
CHECKED IN ON PT, PT CURRENTLY AWAKE WATCHING TV. NO S/S RESPIRATORY DISTRESS NOTED. CALL LIGHT WITHIN REACH. WILL CONTINUE TO MONITOR
[2016-08-23] MEDS ORDERED: HYDRAGUARD CREAM TP SCH (15:04)
--- NOTE | 2016-08-23 15:45 | NUR ---
CHECKED IN ON ON PT, PT CURRENTLY AWAKE, ALL NEEDS MET CALL LIGHT WITHIN REACH.
[2016-08-23 16:00] VITALS: BP 110/58
[2016-08-23] MEDS: CHLORHEXADINE GLUC 2% CLOTH TP SCH (16:15)
[2016-08-23] MEDS: BLOOD GLUCOSE MONITORING 1 DEV DEV FS SCH ×2 (16:35→21:01)
[2016-08-23] MEDS: TAMSULOSIN 0.4 MG CAP PO SCH (17:01)
--- NOTE | 2016-08-23 17:03 | NUR ---
DUE MEDICATIONS GIVEN, PT TOLERATED WELL, ALL NEEDS MET, CALL LIGHT WITHIN REACH. WILL CONTINUE TO MONITOR
--- NOTE | 2016-08-23 19:24 | NUR ---
ENDORSED PLAN OF CARE TO NIGHT NURSE, PT IN STABLE CONDITION.
--- NOTE | 2016-08-23 19:25 | NUR ---
PT IS CURRENTLY AWAKE ALERT RESTING IN BED HAS OXYGEN AT 2LITERS NASAL CANNULA PT HAS NO COMPLAINS OF SOB OR CHEST PAIN,IVF INFUSING WELL,IV SITE PATENT NO INFILTRATION NOTED,PT TURNED AND REPOSITIONED FOR COMFORT.CALL LIGHT WITHIN REACH BED ALARM ON.
[2016-08-23 20:00] VITALS: BP 108/65
--- NOTE | 2016-08-23 20:00 | NUR ---
Patient's Plan of Care was discussed and reviewed with WARP KNITTING MACHINE OPERATOR: NICHELLE GALEANO
[2016-08-23] MEDS: SIMVASTATIN 20 MG TAB PO SCH (20:57)
[2016-08-23] MEDS: traZODone 50 MG TAB PO SCH (20:57)
--- NOTE | 2016-08-23 22:10 | NUR ---
PT SLEEPING COMFORTABLY IN BED CONDOM CATHETER APPLIED TO THE PATIENT AND GOOD PERICARE GIVEN CONTINUES TO HAVE REDNESS TO SCROTAL AREA AND PERINEAL AREA HYDRAGUARD APPLIED.PT TURNED AND REPOSITIONED BY JANAY MULLER AND JANAY VILLANUEVA.
[2016-08-24] VITALS: BP 124/69
--- NOTE | 2016-08-24 | NUR ---
PT IS CURRENTLY RESTING IN BED AWAKENED FOR VITAL SIGNS.IVF INFUSING WELL,PT DENIES PAIN AND DISCOMFORT,NO COMPLAINS OF CHEST PAIN OR SOB NOTED.PT CONTINUES TO BE TURNED AND REPOSITIONED FOR COMFORT.PT CONTINUES TO HAVE CONDOM CATHETER IN PLACE.NEEDS MET CALL LIGHT WITHIN REACH.WILL CONTINUE TO MONITOR.
[2016-08-24] MEDS: NACL 0.9% 1,000 ML IV SCH (01:11)
--- NOTE | 2016-08-24 02:35 | NUR ---
PT IS CURRENTLY RESTING IN BED,IVF INFUSING WELL IV SITE PATENT LT ARM ELEVATED ON A PILLOW.PT CONTINUES TO HAVE CONDOM CATHETER IN PLACE AND DRAINING WELL.PT CONTINUES TO BE TURNED AND REPOSITIONED WITH THE ASSISTANCE OF JANAY VILLANUEVA AND JANAY MULLER WILL CONTINUE TO MONITOR.CALL LIGHT WITHIN REACH.
[2016-08-24] MEDS: CLINDAMYCIN 600 MG in DEXTROSE 5% 50 ML IV SCH ×3 (04:07→21:15)
[2016-08-24 04:25] VITALS: BP 119/71
--- NOTE | 2016-08-24 04:30 | NUR ---
PT TURNED BY JANAY MULLER MORE HYDRAGUARD CREAM APPLIED TO SCROTAL AREA AND PERINEAL AREA.
[2016-08-24] MEDS: traMADol 50 MG TAB PO SCH ×3 (05:38→20:34)
--- NOTE | 2016-08-24 06:05 | NUR ---
PT STABLE REPORT SLEEPING IN BED.CALL LIGHT WITHIN REACH.
[2016-08-24] MEDS: BLOOD GLUCOSE MONITORING 1 DEV DEV FS SCH ×4 (06:30→21:36)
[2016-08-24] MEDS: PANTOPRAZOLE 40 MG TABEC PO SCH (06:30)
--- NOTE | 2016-08-24 07:25 | NUR ---
PT STABLE AWAKE NO DISTRESS ENDORSED AT BEDSIDE TO CARLEEN FRANCO.
--- NOTE | 2016-08-24 07:26 | NUR ---
RECEIVED REPORT FROM RETAIL ACCOUNT MANAGER RN. PT IS A/O X 3, CONFUSED. BEDREST. RFA 20G AND RIGHT HAND 22 INTACT AND PATENT. NO S/S OF ACUTE CARDIAC/RESPIRATORY DISTRESS. O2 2L NC. SAFETY MEASURES IN PLACE, CALL LIGHT WITHIN REACH. WILL CONTINUE PLAN OF CARE AND CONTINUE TO MONITOR.
[2016-08-24 08:00] VITALS: BP 141/74
[2016-08-24] MEDS: MUPIROCIN 2% OINT 22 GM TUBE TP SCH (09:00)
--- NOTE | 2016-08-24 10:00 | NUR ---
ADMINISTERED AM PO MEDS. PT TOLERATED WELL. PT AWAKE. NO S/S OF ACUTE DISTRESS OR DISCOMFORT. CALL LIGHT WITHIN REACH. WILL CONTINUE TO MONITOR.
[2016-08-24] MEDS: SACCHAROMYCES 250 MG CAP PO SCH ×2 (10:01→20:33)
[2016-08-24] MEDS: buPROPion 150 MG TABER PO SCH ×2 (10:02→20:33)
[2016-08-24] MEDS: ESCITALOPRAM 20 MG TAB PO SCH (10:02)
[2016-08-24] MEDS: FOLIC ACID 1 MG TAB PO SCH (10:02)
[2016-08-24] MEDS: DIVALPROEX 500 MG TABEC PO SCH ×2 (10:03→20:33)
[2016-08-24] MEDS: LISINOPRIL 10 MG TAB PO SCH (10:03)
[2016-08-24] MEDS: clonazePAM 0.5 MG TAB PO SCH ×2 (10:04→20:35)
[2016-08-24] MEDS: NAMENDA 14 MG PO SCH (10:12)
[2016-08-24 12:00] VITALS: BP 125/69
--- NOTE | 2016-08-24 12:37 | NUR ---
PT AWAKE. PT DOES NOT WANT TO EAT LUNCH, BUT ENCOURAGED TO DRINK JUICE. FAMILY AT BEDSIDE. NO S/S OF ACUTE DISTRESS OR DISCOMFORT. CALL LIGHT WITHIN REACH. WILL CONTINUE TO MONITOR.
--- NOTE | 2016-08-24 15:07 | NUR ---
PT IS SLEEPING. NO S/S OF ACUTE DISTRESS OR DISCOMFORT. CALL LIGHT WITHIN REACH. WILL CONTINUE TO MONITOR.
[2016-08-24] MEDS: CHLORHEXADINE GLUC 2% CLOTH TP SCH (15:46)
[2016-08-24 16:00] VITALS: BP 154/77
[2016-08-24] MEDS: TAMSULOSIN 0.4 MG CAP PO SCH (17:00)
[2016-08-24] MEDS: LEVOFLOXACIN 750 MG/D5W PREMIX 150 ML IV SCH (17:00)
--- NOTE | 2016-08-24 17:52 | NUR ---
PT WATCHING TV. NO S/S OF ACUTE DISTRESS OR DISCOMFORT. CALL LIGHT WITHIN REACH. WILL CONTINUE TO MONITOR.
--- NOTE | 2016-08-24 19:09 | NUR ---
ENDORSED REPORT TO BUSINESS SUPPORT SPECIALIST RN. PT IS SLEEPING. NO S/S OF ACUTE DISTRESS OR DISCOMFORT. PT IN STABLE CONDITION.
--- NOTE | 2016-08-24 19:10 | NUR ---
PT IS CURRENTLY AWAKE ALERT ORIENTED SOMETIMES PERIODS OF FORGETFULNESS ABLE TO MAKE NEEDS KNOWN.PT RESTING IN BED WITH OXYGEN AT 2L LITERS VIA NASAL CANNULA.PT DENIES PAIN AND DISCOMFORT.IVF INFUSING WELL IV SITE PATENT NO INFILTRATION NOTED.SKIN CHECK DONE AND PATIENT CONTINUES TO HAVE REDNESS TO SCROTAL AREA AND PERINEAL AREA AND AROUND THE HEAD OF THE PENIS AND FORESKIN.PT WILL BE CONTINUE TO BE TURNED AND REPOSITIONED FOR COMFORT HYDRAGUARD WILL BE APPLIED TO PROTECT SKIN.CALL LIGHT WITHIN REACH WILL CONTINUE TO MONITOR.
--- NOTE | 2016-08-24 19:55 | NUR ---
I CALLED MD CARON MARTNIEZ CORPORATE COORDINATOR I SPOKE WITH HER AND INFORMED HER MY CONCERN FOR PATIENT BEING AT RISK FOR SKIN BREAKDOW I EXPLAINED TO MD MARTINEZ THAT PT IS INCONTINENT AND WETS HEAVILY AND HIS SCROTAL AREA AND PERINEAL AREA IS GETTING MORE RED AND NOW HIS PENIS IS RED AND HIS FORESKIN LOOKS RED AND IRRITATED.MD MARTINEZ IS AWARE SHE SAID SHE WILL PUT IN ORDERS FOR HIM.WILL FOLLOW UP ON HER ORDERS. JANAY MORRIS AND JANAY MARCUS AND MYSELF WILL CONTINUE TO CLEAN THE PATIENT AND KEPT HIM CLEAN AND DRY POSSIBLE DURING EPISODES OF INCONTINENCE.
[2016-08-24 20:00] VITALS: BP 147/79
--- NOTE | 2016-08-24 20:00 | NUR ---
Patient's Plan of Care was discussed and reviewed with MANGLE TENDER CLOTH: NICHELLE GALEANO
--- NOTE | 2016-08-24 20:08 | NUR ---
PT HAS AN ORDER FO GALINDO CATHETER, I EXPLAINED TO THE PATIENT THAT THE GALINDO WILL HELP TO PROTECT HIS SKIN FROM BEING WET DURING EPISODES OF INCONTINENCE AND WILL HELP HIS SKIN ESPECIALLY HIS SCROTAL AREA AND PERINEAL AREA AND HIS PENIS AND FORESKIN THAT IS CURRENTLY RED AND IRRITATED TO HEAL FASTER WITH THE HELP OF THE HYDRAGUARD CREAM.PT STATES,"NO I DON'T WANT A GALINDO CATHETER I HAD ONE BEFORE AND NO I DON'T WANT IT." PT EXPLAINED TO ME THAT HE JUST WANTS TO BE TURNED AND REPOSITIONED AND KEPT CLEAN PT STATES,"NO GALINDO CATHETER PLEASE."I EXPLAINED TO THE PATIENT THAT IF HE CHANGES HIS MIND DURING THE NIGHT TO TELL ME KNOW.PT VERBALIZES UNDERSTANDING.
[2016-08-24] MEDS: traZODone 50 MG TAB PO SCH (20:34)
[2016-08-24] MEDS: SIMVASTATIN 20 MG TAB PO SCH (20:35)
--- NOTE | 2016-08-24 23:20 | NUR ---
PT HAD EPISODE OF INCONTINENCE AND IS VERY WET SOILED A LOT. WITH THE ASSISTANCE OF JANAY DUDLEY PATIENT WAS CLEANED GOOD PERICARE GIVEN AND CREAM APPLIED ORDERED.THEN PATIENT WAS TURNED AND REPOSITIONED.
--- NOTE | 2016-08-24 23:25 | NUR ---
PT CALLING NOT SURE WHAT HE REALLY WANTS PT STATES,"NOTHING." THEN PT STATE,"YES BRING ME A WARM BLANKET PLEASE." PT WAS GIVEN A WARM BLANKET AND TUCKED IN BED PER PATIENTS REQUEST.LEFT ARM CONTINUES TO BE SWOLLEN AND KEPT ON TOP OF A PILLOW FOR COMFORT.PT NEEDS MET WILL CONTINUE TO MONITOR.
[2016-08-25] VITALS: BP 139/69
--- NOTE | 2016-08-25 | NUR ---
VITALS SIGNS STABLE. NO C/O PAIN. WILL MONITOR.
--- NOTE | 2016-08-25 00:28 | NUR ---
PT AWAKENED FOR VITAL SIGNS PT DENIES PAIN,PT IS CURRENTLY CLEAN AND DRY,IVF INFUSING WELL,IV SITE PATENT,PT HAS BLANKETS KEPT COMFORTABLE CALL LIGHT WITHIN REACH WILL CONTINUE TO MONITOR.
[2016-08-25] MEDS: NACL 0.9% 1,000 ML IV SCH ×2 (01:11→17:35)
--- NOTE | 2016-08-25 03:00 | NUR ---
PT SLEEPING COMFORTABLY IN BED WILL CONTINUE TO MONITOR.
[2016-08-25 04:00] VITALS: BP 136/71
[2016-08-25] MEDS: CLINDAMYCIN 600 MG in DEXTROSE 5% 50 ML IV SCH ×3 (04:23→20:31)
--- NOTE | 2016-08-25 04:55 | NUR ---
PT WAS TURNED AND REPOSITIONED FOR COMFORT GOOD PERICARE GIVEN AND NEEDS MET.WILL CONTINUE TO MONITOR.
[2016-08-25] MEDS: traMADol 50 MG TAB PO SCH ×3 (05:42→20:33)
[2016-08-25] MEDS: PANTOPRAZOLE 40 MG TABEC PO SCH (06:04)
[2016-08-25] MEDS: BLOOD GLUCOSE MONITORING 1 DEV DEV FS SCH ×4 (06:04→20:28)
--- NOTE | 2016-08-25 06:30 | NUR ---
PT RESTING IN BED IN NO DISTRESS WILL CONTINUE TO MONITOR.CALL LIGHT WITHIN REACH.
--- NOTE | 2016-08-25 06:58 | NUR ---
IV TO RT HAND OUT OF PLACE SO IT WAS REMOVED.
--- NOTE | 2016-08-25 07:10 | NUR ---
ASSUMED CONTINUITY OF CARE. NO SIGNS AND SYMPTOMS OF ACUTE DISTRESS NOTICED. INITIAL ASSESSMENT DONE. RE-ORIENTED TO EVENTS AND SURROUNDINGS. EDEMA ON LUE, NOTED. ELEVATED WITH PILLOWS. KEEP COMFORTABLE ON BED. CONTACT ISOLATION PRECAUTION AND FALL PRECAUTION APPLIED. CALL LIGHT WITHIN REACH.
--- NOTE | 2016-08-25 07:19 | NUR ---
PT STABLE REPORT ENDORSED TO CARLEEN YEN HE WILL RESUME CARE OF THE PATIENT.
--- NOTE | 2016-08-25 07:20 | NUR ---
Patient's Plan of Care was discussed and reviewed with FIELD ARTILLERY CANNONEER: MANJIT Thomson
[2016-08-25 08:08] VITALS: BP 133/74
[2016-08-25] MEDS ORDERED: MAG SULF 2000 MG/WATER PREMIX 50 ML IV SCH (08:30)
[2016-08-25] MEDS: FOLIC ACID 1 MG TAB PO SCH (08:57)
[2016-08-25] MEDS: ESCITALOPRAM 20 MG TAB PO SCH (08:58)
[2016-08-25] MEDS: SACCHAROMYCES 250 MG CAP PO SCH ×2 (08:58→20:31)
[2016-08-25] MEDS: DIVALPROEX 500 MG TABEC PO SCH ×2 (08:58→20:34)
[2016-08-25] MEDS: LISINOPRIL 10 MG TAB PO SCH (08:58)
[2016-08-25] MEDS: clonazePAM 0.5 MG TAB PO SCH ×2 (08:59→20:33)
[2016-08-25] MEDS: buPROPion 150 MG TABER PO SCH ×2 (08:59→20:33)
[2016-08-25] MEDS: NAMENDA 14 MG PO SCH (09:00)
[2016-08-25] MEDS: MUPIROCIN 2% OINT 22 GM TUBE TP SCH (09:00)
--- NOTE | 2016-08-25 10:12 | NUR ---
PT -STUART CAME FOR PT. TREATMENT.
--- NOTE | 2016-08-25 10:40 | NUR ---
DR. RENDON CAME AND SPOKE TO PT.. PT. CALM, QUIET AND COOPERATIVE.
--- NOTE | 2016-08-25 10:55 | NUR ---
INTERACTIVE PROJECT MANAGER -MARCIAL CAME AND SPOKE TO PT., PT. , AND PT. CAREGIVER.
--- NOTE | 2016-08-25 11:30 | NUR ---
TAKE OFF FROM O2 AT 2L/MIN VIA NC. PUT ON ROOM AIR. HOB ELEVATED. NO DISTRESS NOTED. WILL MONITOR FOR O2 SATURATION ON ROOM AIR.
--- NOTE | 2016-08-25 11:36 | NUR ---
FAXED INITIAL REVIEW TO [facility] [phone] PHONE KRISTEL [phone] KARY [phone] Addendum: 08/25/16 at 1158 by Cesia Collier CM KARY PHONE [phone]
--- NOTE | 2016-08-25 11:52 | NUR ---
SS NOTE: I SPOKE WITH KARY FROM [facility] [facility] ([phone]) AND INFORMED HER OF THE PHYSICIAN'S ORDER FOR HOME HEALTH. I ALSO INFORMED HER THAT PT'S REQUESTED ADDITIONAL HOURS FOR PT'S CAREGIVER.
--- NOTE | 2016-08-25 11:58 | NUR ---
SPOKE WITH KARY FROM [facility]. SHE SAID THEY WILL INCREASE THE HOURS FOR THE CARE GIVEN. THE PT IS IN HOUSE AND THE PATIENT EITHER GOES THERE, OR THEY ARRANGE FOR PT TO GO TO THE HOUSE. I INFORMED HER THE PATIENT NEEDED O2 FOR HOME AND I FAXED HER THE ORDER . Addendum: 08/25/16 at 1353 by Cesia Collier CM CLARIFICATION. THE PHYSICIAL THERAPY IS IN HOUSE AT [facility] AND THE PATIENT EITHER GOES THERE OR THEY ARRANGE FOR PHYSICAL THERAPY TO GO TO THE HOUSE.
[2016-08-25 12:00] VITALS: BP 148/79
--- NOTE | 2016-08-25 12:00 | NUR ---
PT. O2 SATURATION ON ROOM AIR GOING DOWN TO 84%. NO DISTRESS NOTED. PUT BACK ON O2 AT 2L/MIN VIA NC. INFORMED CHARGE NURSE BLANKA ZAVALETA. CAROL NUNN MADE AWARE.
--- NOTE | 2016-08-25 14:48 | NUR ---
SS NOTE: MESSAGE LEFT FOR KARY ([phone]) AT [facility] TO FOLLOW UP ON PT'S HOME OXYGEN
--- NOTE | 2016-08-25 15:00 | NUR ---
INFORMED CAROL NUNN WHO WAS AT MEDICAL STUDENT ROOM AT THIS TIME ABOUT PT. REDNESS ON PERINEAL AREA AND ASKED FOR TREATMENT. CAROL NUNN STATES "I'LL TAKE CARE OF IT."
--- NOTE | 2016-08-25 15:26 | NUR ---
LEFT 2 MESSAGES FOR KARY TO CALL ME BACK ABOUT THE HOME OXYGEN.
--- NOTE | 2016-08-25 15:40 | NUR ---
RECEIVED A CALL FROM KARY FROM [facility]. SHE SAYS SHE NEEDS TO GET AN ORDER FROM HER PHYSICIAN AT [facility] BEFORE THEY CAN SET UP OXYGEN. I REMINDED HER THE PATIENT IS ANTICIPATED TO BE DISCHARGED TODAY AND WILL NEED TO HAVE A CONCENTRATOR DELIVERED TO THE HOUSE TODAY AND A PORTABLE O2 BROUGHT HERE FOR THE PATIENT TO GO HOME WITH.
[2016-08-25 16:00] VITALS: BP 148/80
--- NOTE | 2016-08-25 16:17 | NUR ---
SS NOTE: I LEFT ANOTHER MESSAGE FOR KARY [facility] TO FOLLOW UP ON PT'S HOME OXYGEN.
[2016-08-25] MEDS: CHLORHEXADINE GLUC 2% CLOTH TP SCH (16:22)
[2016-08-25] MEDS: TAMSULOSIN 0.4 MG CAP PO SCH (16:40)
--- NOTE | 2016-08-25 16:55 | NUR ---
LEFT 2 MESSAGES FOR KARY FOR OXYGEN FOR THIS PATIENT. I LEFT THE PHONE NUMBER TO THE FLOOR ON HER ANSWERING MACHINE IN CASE SHE SETS UP OXYGENT. PHONE KARY IS [phone]
--- NOTE | 2016-08-25 19:10 | NUR ---
BEDSIDE REPORT GIVEN TO JUSTICE ZAVALETA. IVF INFUSING WELL. IN STABLE CONDITION.
--- NOTE | 2016-08-25 19:30 | NUR ---
ASSUMED CARE OF PATIENT, AWAKE, ALERT AND ORIENTED. NO COMPLAINS. NO DISTRESS NOTED. REPOSITIONED BY LITERARY AGENT.
[2016-08-25 19:51] VITALS: BP 140/78
--- NOTE | 2016-08-25 20:00 | NUR ---
VITAL SIGNS STABLE NOTED. AFEBRILE NOTED. PLAN OF CARE DISCUSSED WITH PATIENT, VERBALIZED UNDERSTANDING WELL. CALL LIGHT WITHIN REACH.
[2016-08-25] MEDS: traZODone 50 MG TAB PO SCH (20:31)
[2016-08-25] MEDS: SIMVASTATIN 20 MG TAB PO SCH (20:34)
--- NOTE | 2016-08-25 21:00 | NUR ---
DUE MEDS GIVEN. NO COMPLAINS. CALL LIGHT WITHIN REACH.
--- NOTE | 2016-08-25 23:30 | NUR ---
TAKE OFF FROM AT 2L/MIN VIA NC. PUT ON ROOM AIR. NO DISTRESS NOTED. WILL MONITOR FOR O2 SATURATION ON ROOM AIR. KEEP HOB ELEVATED. Addendum: 08/26/16 at 0954 by Brannon Pritchard LVN WRONG ENTRY: ENTERED WRONG TIME.
[2016-08-26 00:04] VITALS: BP 141/79
--- NOTE | 2016-08-26 00:05 | NUR ---
VITAL SIGNS STABLE. SLEEPING WELL. NO COMPLAINS. CALL LIGHT WITHIN REACH.
[2016-08-26 03:59] VITALS: BP 145/71
--- NOTE | 2016-08-26 04:00 | NUR ---
NO COMPLAINS. VITAL SIGNS STABLE. AFEBRILE. FURNACE ATTENDANT AT BEDSIDE, PERICARE AND REPOSITIONED. CALL LIGHT WITHIN REACH.
[2016-08-26] MEDS: traMADol 50 MG TAB PO SCH ×2 (04:21→13:03)
[2016-08-26] MEDS: CLINDAMYCIN 600 MG in DEXTROSE 5% 50 ML IV SCH ×2 (04:21→12:50)
[2016-08-26] MEDS: PANTOPRAZOLE 40 MG TABEC PO SCH (05:52)
[2016-08-26] MEDS: BLOOD GLUCOSE MONITORING 1 DEV DEV FS SCH ×3 (05:52→16:17)
--- NOTE | 2016-08-26 05:54 | NUR ---
REFUSED BLOOD DRAW THIS AM ORDERED.
--- NOTE | 2016-08-26 07:05 | NUR ---
ENDORSED CARE OF PATIENT AT BEDSIDE WITH ISELA RN, PATIENT IN STABLE CONDITION.
--- NOTE | 2016-08-26 07:08 | NUR ---
ASSUMED CONTINUITY OF CARE. NO SIGNS AND SYMPTOMS OF ACUTE DISTRESS NOTED. INITIAL ASSESSMENT DONE. RE-ORIENTED TO EVENTS AND SURROUNDINGS. EXPLAINED DIAGNOSIS, PLAN OF CARE, PAIN MANAGEMENT TEACHING, CONTACT ISOLATION PRECAUTION, USE OF CALL LIGHT/BED/TV/BATHROOM. VERBALIZED UNDERSTANDING. FALL PRECAUTION APPLIED. CALL LIGHT WITHIN REACH.
[2016-08-26 08:00] VITALS: BP 140/76
--- NOTE | 2016-08-26 08:00 | NUR ---
Patient's Plan of Care was discussed and reviewed with RFP WRITER: MANJIT Thomson
[2016-08-26] MEDS ORDERED: CLEOCIN HCL300 MG PO (08:56)
[2016-08-26] MEDS ORDERED: LEVAQUIN750 MG PO (08:56)
[2016-08-26] MEDS ORDERED: FLORASTOR250 MG PO (08:56)
--- NOTE | 2016-08-26 08:56 | NUR ---
TAKE OFF FROM O2 2L/MIN VIA NC. PUT ON ROOM AIR AND WILL MONITOR FOR O2 SATURATION.
[2016-08-26] MEDS: FOLIC ACID 1 MG TAB PO SCH (08:59)
[2016-08-26] MEDS: SACCHAROMYCES 250 MG CAP PO SCH (08:59)
[2016-08-26] MEDS: DIVALPROEX 500 MG TABEC PO SCH (08:59)
[2016-08-26] MEDS: LISINOPRIL 10 MG TAB PO SCH (09:00)
[2016-08-26] MEDS: ESCITALOPRAM 20 MG TAB PO SCH (09:00)
[2016-08-26] MEDS: clonazePAM 0.5 MG TAB PO SCH (09:01)
[2016-08-26] MEDS: buPROPion 150 MG TABER PO SCH (09:01)
[2016-08-26] MEDS: NAMENDA 14 MG PO SCH (09:03)
[2016-08-26] MEDS: MUPIROCIN 2% OINT 22 GM TUBE TP SCH (09:04)
--- NOTE | 2016-08-26 09:12 | NUR ---
PT. O2 SATURATION GOING DOWN TO 83% ON ROOM AIR. NO DISTRESS NOTED. PUT BACK ON O2 AT 2L/MIN VIA NC. DR. SOTO AND ORTHOPEDICS PEDIATRIC PHYSICIAN -ALLY MADE AWARE. INFORMED CHARGE NURSE SHAKEEL ZAVALETA
--- NOTE | 2016-08-26 09:45 | NUR ---
PHYSICAL THERAPY CAME FOR PT. PHYSICAL THERAPY TREATMENT. TOLERATED WELL. CALM AND COOPERATIVE.
--- NOTE | 2016-08-26 10:58 | NUR ---
CALLED [facility] THIS AM AND LEFT MESSAGE FOR KARY. CALLED [facility] AND SPOKE WITH ALEX. HE SAID HE WOULD FOLLOW UP WITH KARY ABOUT THE HOME OXYGEN. FAXED CONCURRENT REVIEW TO [facility] [phone] PHONE KARY [phone]
--- NOTE | 2016-08-26 11:44 | NUR ---
SS NOTE: PER KRISTEL FROM [employer], PT'S PORTABLE OXYGEN AND CONCENTRATOR WILL BE DELIVERED BY 1330 TODAY.
[2016-08-26 12:00] VITALS: BP 147/89
--- NOTE | 2016-08-26 13:46 | NUR ---
WATCHING TV AT THIS TIME. NO SOB, NOTED. CALL LIGHT WITHIN REACH.
--- NOTE | 2016-08-26 14:49 | NUR ---
SS NOTE: I WAS INFORMED BY GABRIELLA SARAVIA THAT PT HAS NOT RECEIVED HIS PORTABLE OXYGEN. I SPOKE WITH KRISTEL FROM [employer] ([phone]) AND INFORMED HER THAT PT'S OXYGEN HAS NOT BEEN DELIVERED. SHE STATED THAT SHE IS OUT IN THE FIELD AND WILL FOLLOW UP WITH HER THEIR HOME DEPT TO FOLLOW UP WITH THE OXYGEN.
[2016-08-26] MEDS: CHLORHEXADINE GLUC 2% CLOTH TP SCH (15:37)
[2016-08-26 16:00] VITALS: BP 145/79
--- NOTE | 2016-08-26 16:24 | NUR ---
SS NOTE: PER PT'S CAREGIVER, AUGUSTO, PT'S CONCENTRATOR AND PORTABLE OXYGEN HAS BEEN DELIVERED TO PT'S HOME AND SHE WILL BRING THE PORTABLE OXYGEN WHEN SHE COMES TO PICK PT UP TODAY AT 1700. METAL WINDOW SCREEN ASSEMBLER SHAKEEL MADE AWARE. I SPOKE WITH CARLEEN ALCANTAR FROM [email or web address] ([phone]/C:[phone]) AND HE STATED THAT HE WILL COORDINATE WITH PT'S CAREGIVER, ELIER TO HAVE PT BROUGHT TO THEIR CLINIC TOMORROW MORNING AFTER BREAKFAST.
[2016-08-26] MEDS: TAMSULOSIN 0.4 MG CAP PO SCH (16:42)
[2016-08-26] MEDS: LEVOFLOXACIN 750 MG/D5W PREMIX 150 ML IV SCH (17:07)
--- NOTE | 2016-08-26 17:25 | NUR ---
PT. -EVONNE, AND PT. CAREGIVER -BETH CAME, EXPLAINED ABOUT DIAGNOSIS, MD D/C ORDER, MD D/C INSTRUCTIONS AND TEACHING, MD D/C PRESCRIPTION LIST EDUCATION, MD FOLLOW-UP, PAIN MANAGEMENT TEACHING, DIET. PT., PT. -EVONNE, AND PT. CAREGIVER -BETH VERBALIZED UNDERSTANDING. PT. OWN MEDICINE (NAMENDA 3 CAPSULES) FROM PHARMACY WAS HANDED OVER TO PT. -EVONNE.
--- NOTE | 2016-08-26 17:40 | NUR ---
DR. SULLIVAN CAME, WENT TO PT. ROOM AND EXPLAINED TO PT., PT. -EVONNE, AND PT. CAREGIVER -BETH ABOUT D/C INSTRUCTIONS AND TEACHING.
--- NOTE | 2016-08-26 18:00 | NUR ---
D/C HOME VIA WHEELCHAIR WITH PORTABLE O2 THAT WAS BROUGHT BY PT. -EVONNE, ASSISTED BY RENZO GUERRERO. PT. WITH PT. -EVONNE, AND PT. CAREGIVER BETH. PT. AWAKE, ALERT, AND ORIENTED X3. SPEECH CLEAR. NO C/O PAIN. NO SOB, NOTED. IN STABLE CONDITION. INFORMED CHARGE NURSE SHAKEEL ZAVALETA.
== END 2016-08-26 18:00 | disposition home health service (06) | DRG 871 ==
LOC: MED 10:05 → MTU 12:24
PROVIDERS: ADMIT Family Medicine; ATTEND Family Medicine
DX: A41.9 Sepsis, unspecified organism (principal); N17.0 Acute kidney failure with tubular necrosis; I21.4 Non-ST elevation (NSTEMI) myocardial infarction; J69.0 Pneumonitis due to inhalation of food and vomit; E43 Unspecified severe protein-calorie malnutrition; L03.114 Cellulitis of left upper limb; J44.0 Chronic obstructive pulmonary disease with (acute) lower respiratory infection; R55 Syncope and collapse; G90.9 Disorder of the autonomic nervous system, unspecified; E87.6 Hypokalemia; F31.9 Bipolar disorder, unspecified; E78.5 Hyperlipidemia, unspecified; F03.90 Unspecified dementia, unspecified severity, without behavioral disturbance, psychotic disturbance, mood disturbance, and anxiety; K21.9 Gastro-esophageal reflux disease without esophagitis; N40.0 Benign prostatic hyperplasia without lower urinary tract symptoms; E83.42 Hypomagnesemia; I50.9 Heart failure, unspecified; R73.03 Prediabetes; I11.0 Hypertensive heart disease with heart failure; E83.51 Hypocalcemia; Z88.2 Allergy status to sulfonamides; Z79.899 Other long term (current) drug therapy; Z90.49 Acquired absence of other specified parts of digestive tract; Z68.38 Body mass index [BMI] 38.0-38.9, adult; Z99.81 Dependence on supplemental oxygen; Z86.73 Personal history of transient ischemic attack (TIA), and cerebral infarction without residual deficits

== ENCOUNTER 2016-08-31 13:05 | Inpatient (IN) | payer OTHER, MEDICAID ==
[~2016-08-31] VITALS: Ht 167.6 cm; Wt 127.0 kg
[~2016-08-31 13:05] MED LIST changes: +CLEOCIN HCL300 MG PO; +FLORASTOR250 MG PO; +LEVAQUIN750 MG PO
[2016-08-31 13:10] VITALS: BP 108/71
--- NOTE | 2016-08-31 14:50 | NUR ---
PT BIBA TO BED 1 AT THIS TIME.
--- NOTE | 2016-08-31 14:52 | NUR ---
70M BIBA FROM HOME C/O GENERALIZED WEAKNESS X TODAY; PER EMS, PT WAS D/C FROM [facility] YESTERDAY; PT STATES DOES NOT REALLY AMBULATE AT HOME; PT HAS BL UPPER EXTREMITY MILD WEAKNESS, W/ BL SEVERE WEAKNESS TO LOWER EXTREMITIES AT THIS TIME. A&OX4, BL LUNG SOUNDS CLEAR, RR EVEN/UNLABORED, SKIN IS WARM/DRY/INTACT AT THIS TIME; PT DENIES N/V/D OR ANY PAIN OR DISCOMFORT AT THIS TIME. PT PLACED IN GOWN, RESTING IN BED W/ HOB ELEVATED AND IN LOWEST POSITION; POSITIONED FOR COMFORT; ER MD MADE AWARE OF STATUS. WILL CONTINUE TO MONITOR.
--- NOTE | 2016-08-31 14:56 | NUR ---
X RAY AT BEDSIDE AT THIS TIME.
[2016-08-31] MEDS ORDERED: ASPIRIN 81 MG TAB.CHEW PO ONE (15:10)
[2016-08-31] MEDS ORDERED: CLOPIDOGREL 75 MG TAB PO ONE (15:10)
--- NOTE | 2016-08-31 15:45 | NUR ---
ATTEMPTING TO ESTABLISH IV IN PT FOR ADMITTANCE.
--- NOTE | 2016-08-31 15:59 | NUR ---
REPORT GIVEN TO CARLEEN MARES AT TELEMETRY.
--- NOTE | 2016-08-31 16:05 | NUR ---
Patient will be admitted to care of DR. GUILLORY. Admited to TELEMETRY. Will go to room 123B. Belongings list completed. Report to CARLEEN MARES.
[2016-08-31] MEDS ORDERED: HYDROcodone/APAP 10/325 MG 1 TAB TAB PO PRN (16:20)
--- NOTE | 2016-08-31 16:30 | NUR ---
RECEIVED REPORT FROM THE ER NURSE FOR CONTINUITY OF CARE. PATIENT IS ALERT AND ORIENTEDX4. IV ON THE LEFT HAND INTACT AND PATENT, FLUSHING WELL. INITIAL ASSESSMENT DONE. PATIENT ON 3L O2 VIA NASAL CANNULAR. NO S/S OF SOB OR RESPIRATORY DISTRESS. SKIN INTACT. BEDBOUND NON AMBULATORY. NO S/S OF DISTRESS. VITAL TAKEN AND STABLE. DENIED ANY PAIN AT THIS TIME. AND CAREGIVER AT BEDSIDE. ORIENTED PATIENT TO THE ROOM AND CALL LIGHT. SAFETY CHECKED MADE AND WILL CONTINUE TO MONITOR. CALL LIGHT WITHIN REACH.
--- NOTE | 2016-08-31 17:00 | NUR ---
PATIENT TAKEN FOR CT.
[2016-08-31 17:18] VITALS: BP 106/71
--- NOTE | 2016-08-31 17:30 | NUR ---
RETURNED FROM CT. FAMILY AT BEDSIDE. SEEN PATIENT
--- NOTE | 2016-08-31 17:40 | NUR ---
LASIX GIVEN AND ZOSYN STARTED INFUSING. NO S/S OF SOB OR DISTRESS. WILL CONTINUE TO MONITOR.
[2016-08-31] MEDS ORDERED: HEPARIN PER PHARMACY MC PRN (18:15)
[2016-08-31] MEDS ORDERED: hePARIN / DEXT 5% PREMIX 250 ML IV PRN (18:15)
[2016-08-31] MEDS: FUROSEMIDE 40 MG/4 ML VIAL IVP SCH (18:38)
[2016-08-31] MEDS ORDERED: PIPERACILLIN/TAZOBACTAM 3.375 GM VIAL IV ONE ×2 (18:49→23:32)
[2016-08-31] MEDS: PIPER/TAZO 3.375GM/D5W PREMIX 50 ML IV SCH ×2 (18:49→23:41)
--- NOTE | 2016-08-31 19:30 | NUR ---
REPORT GIVEN TO WARD SERVICE SUPERVISOR NURSE FOR CONTINUITY OF CARE AT BEDSIDE. PATIENT IN STABLE CONDITION AND ALL NEED MET AT THIS TIME.
--- NOTE | 2016-08-31 19:31 | NUR ---
PT IS CURRENTLY SLEEPING BUT AWAKENED WHEN CALLED BY HIS NAME,DENIES ANY CHEST PAIN AND HAS NO SOB OR RESPIRATORY DISTRESS,PT IS SLEEPY AND GOES BACK TO SLEEP.IVF INFUSING WELL.CALL LIGHT WITHIN REACH SAFETY WILL CONTINUE TO MONITOR.
[2016-08-31 20:00] VITALS: BP 113/66
[2016-08-31] MEDS ORDERED: ENALAPRIL 10 MG TAB PO SCH (21:00)
[2016-08-31] MEDS ORDERED: ATORVASTATIN 20 MG TAB PO SCH (21:00)
[2016-08-31] MEDS ORDERED: DIVALPROEX 500 MG TABER PO SCH (21:00)
[2016-08-31] MEDS: SACCHAROMYCES 250 MG CAP PO SCH (21:42)
[2016-08-31] MEDS: buPROPion 150 MG TABER PO SCH (21:42)
[2016-08-31] MEDS: traZODone 50 MG TAB PO SCH (21:42)
--- NOTE | 2016-08-31 21:42 | NUR ---
PT TOOK HIS ROUTINE MEDICATIONS WITH WATER,DRINKS PLENTY OF WATER.
[2016-08-31] MEDS: clonazePAM 0.5 MG TAB PO SCH (21:45)
[2016-08-31] MEDS: ZIPRASIDONE 40 MG CAP PO SCH (21:55)
--- NOTE | 2016-08-31 22:10 | NUR ---
I SPOKE TO ZEESHAN ESCOBEDO COVERING MD COLLINS SCISSORS GRINDER HE WAS INFORMED THAT TROP IS HIGHER AND I ALSO INFORMED HIM OF PATIENT'S LATEST BLOOD PRESSURE AND EKG RHYTHM.I REPORTED TO MD THAT PATIENT HAS NO COMPLAINS OF CHEST PAIN OR SOB AND THAT PATIENT WILL BE STARTED ON HEPARIN ORDERED.MD IS AWARE OF PATIENT'S CONDITION AND GAVE NEW ORDERS.ORDERS WILL BE CARRIED OUT.
--- NOTE | 2016-08-31 22:30 | NUR ---
Patient's Plan of Care was discussed and reviewed with PLANT WORKER: NICHELLE GALEANO
[2016-08-31] MEDS ORDERED: ASPIRIN 325 MG TAB PO SCH (22:45)
[2016-09-01] VITALS: BP 108/65
--- NOTE | 2016-09-01 00:08 | NUR ---
PT IS CURRENTLY STABLE SLEEPING IN BED NO PAIN OR DISCOMFORT NOTED NO RESP DISTRESS CONTINUE TO HAVE OXYGEN AT 3L VIA NASAL CANNULA,PT CONTINUE TO HAVE HEPARIN DRIP ONGOING,PT KEPT CLEAN AND DRY ASSISTED TO TURN NEEDED AND REPOSITION.WILL CONTINUE TO MONITOR.
--- NOTE | 2016-09-01 02:40 | NUR ---
PT STABLE SLEEPING IN BED TURNED AND REPOSITIONED KEPT CLEAN AND DRY PT INCONTINENT UNABLE TO COLLECT URINE.
--- NOTE | 2016-09-01 04:15 | NUR ---
PT HAD ANOTHER EPISODE OF INCONTINENCE UNABLE TO COLLECT URINE.PT REPOSITIONED KEPT CLEAN AND DRY.
[2016-09-01 04:20] VITALS: BP 112/68
[2016-09-01] MEDS ORDERED: PIPERACILLIN/TAZOBACTAM 3.375 GM VIAL IV ONE (05:20)
[2016-09-01] MEDS: PIPER/TAZO 3.375GM/D5W PREMIX 50 ML IV SCH ×3 (05:29→17:02)
--- NOTE | 2016-09-01 06:40 | NUR ---
PT STABLE SLEEPING IN BED IN NO DISTRESS WILL CONTINUE TO MONITOR.
--- NOTE | 2016-09-01 07:28 | NUR ---
PT ENDORSED TO CARLEEN PAIGE AT BEDSIDE SHE WILL RESUME CARE OF THE PATIENT.
--- NOTE | 2016-09-01 07:29 | NUR ---
RECEIVED REPORT FROM THE SERVICE ESTABLISHMENT ATTENDANT NURSE AT BEDSIDE. PT IS ALERT AND ORIENTED. I INTRODUCED MYSELF AND UPDATED THE BOARD. PT IS BEDBOUND. NOTED THE NC O2 AT 3L. NOTED R HAND IV'S 22 G. ONE IS INFUSING IV FLUIDS AND THE OTHER FOR HEPARIN. IT IS CURRENT ON HOLD PER PROTOCOL. PER NIGHTSHIFT NURSE SHE HELD IT D/T THE PTT LEVEL AND PER PROTOCOL, TO HOLD FOR 1 HOUR. PT'S BREATHING IS FINE. LUNGS ARE CLEAR. ABDOMEN LARGE AND ROUND. NO COMPLAINTS OF PAIN. NO EDEMA NOTED IN FEET. WILL CONTINUE TO MONITOR PT.
--- NOTE | 2016-09-01 07:50 | NUR ---
MOHAN, THE PHARMACIST CALLED. NEED TO RECALCULATE THE DOSE OF HEPARIN. HOLD UNTIL HE CALLS BACK. PT V/S WITHIN NORMAL RANGE. PT C/O THAT HE IS WET. NOTIFIED SPECIAL EDUCATION PROFESSIONAL TO CHANGE PT.
[2016-09-01 08:00] VITALS: BP 139/83
[2016-09-01] MEDS ORDERED: MAG SULF 2000 MG/WATER PREMIX 100 ML IV SCH (08:00)
--- NOTE | 2016-09-01 08:00 | NUR ---
MOHAN CALLED. NEW DOSAGE FOR HEPARIN. STARTED HEPARIN AT 1100U. 11ML/HR. REORDERED PTT LEVEL FOR 6 HRS. ASSISTED DEPLOYMENT MANAGER WITH PT ADL'S. ALL SAFETY MEASURE IN PLACE. WILL CONTINUE TO MONITOR PT.
--- NOTE | 2016-09-01 08:45 | NUR ---
RECEIVED A CALL FROM KATHARINE LUCAS AT [facility] AND PROVIDED HIM WITH VERBAL REPORT OF PT ADMISSION ON 08/31/16 AND PROVIDED CLINICAL INFORMATION AND INFORMED HIM THAT A WRITTEN REVIEW WILL BE SENT TODAY. KATHARINE'S PHONE #[phone].
[2016-09-01] MEDS: SACCHAROMYCES 250 MG CAP PO SCH ×2 (09:00→21:37)
--- NOTE | 2016-09-01 09:09 | NUR ---
PATIENT HAS BEEN SCREENED AND CATEGORIZED HIGH NUTRITION RISK. PATIENT WILL BE SEEN WITHIN 1-2 DAYS OF ADMISSION. 09/01/16-09/02/[address]
[2016-09-01] MEDS: buPROPion 150 MG TABER PO SCH ×2 (09:14→21:39)
[2016-09-01] MEDS: FUROSEMIDE 40 MG/4 ML VIAL IVP SCH ×2 (09:14→16:58)
[2016-09-01] MEDS: ASPIRIN 325 MG TAB PO SCH (09:14)
[2016-09-01] MEDS: DIVALPROEX 500 MG TABER PO SCH ×2 (09:15→21:37)
[2016-09-01] MEDS: TAMSULOSIN 0.4 MG CAP PO SCH (09:15)
[2016-09-01] MEDS: PANTOPRAZOLE 40 MG TABEC PO SCH (09:15)
[2016-09-01] MEDS: MEMANTINE 10 MG TAB PO SCH (09:15)
[2016-09-01] MEDS: ESCITALOPRAM 20 MG TAB PO SCH (09:15)
[2016-09-01] MEDS: clonazePAM 0.5 MG TAB PO SCH ×2 (09:16→21:39)
[2016-09-01] MEDS: FOLIC ACID 1 MG TAB PO SCH (09:16)
[2016-09-01] MEDS: LISINOPRIL 10 MG TAB PO SCH (09:17)
--- NOTE | 2016-09-01 09:20 | NUR ---
PT TOLERATED MORNING MEDS WELL. FLORASTOR WAS HELD D/T NONE ON UNIT. CALLED PHARMACY. PT IS HERE TO WORK WITH PT. WILL HOLD THE MAG UNTIL HE IS DONE.
[2016-09-01] MEDS ORDERED: MAG SULF 2000 MG/WATER PREMIX 100 ML IV ONE (11:15)
--- NOTE | 2016-09-01 11:20 | NUR ---
PT IS SLEEPING. I CONNECTED HIM TO THE MAG RIDER NOW, SINCE HE WAS DOING PT EARLIER. WILL CONTINUE TO MONITOR PT. ALL SAFETY MEASURE IN PLACE.
[2016-09-01 12:00] VITALS: BP 108/63
[2016-09-01] MEDS ORDERED: POTASSIUM CHLORIDE 10 MEQ TABER PO SCH (12:00)
[2016-09-01] MEDS: NACL 0.9% 1,000 ML IV SCH (12:13)
--- NOTE | 2016-09-01 12:17 | NUR ---
CM NOTE INITIAL REVIEW FAXED TO [facility] / FAX# [phone], ATTN: KATHARINE #[phone]
--- NOTE | 2016-09-01 13:00 | NUR ---
FINISHED THE ZOSYN SO I REHUNG THE MAG RIDER AFTER FLUSHING THE LINE. PT TOLERATED WELL. DR. HARLEY STOPPED BY TO SEE PT. PT REFUSED LUNCH AND WAS EATING POTATO CHIPS AND COKE. EDUCATED HIM ABOUT BEING ON A CARDIAC DIET,WHICH MEANS LOW SODIUM DIET. PT VERBALIZED UNDERSTANDING BUT HE REFUSED TO STOP EATING HIS POTATO CHIPS. FAMILY AT BEDSIDE.
[2016-09-01] MEDS: hePARIN / DEXT 5% PREMIX 250 ML IV SCH ×3 (14:32→23:10)
--- NOTE | 2016-09-01 14:35 | NUR ---
HUNG A NEW BAG OF HEPARIN. INFUSING AT 11ML/HR. HUNG THE 2ND BAG OF MAG RIDER. PT SLEEPING THROUGHOUT THE WHOLE PROCEDURE. NO SIGNS OF DISTRESS. ALL SAFETY MEASURES IN PLACE. WILL CONTINUE TO MONITOR PT.
--- NOTE | 2016-09-01 15:50 | NUR ---
RECEIVED REPORT AT BEDSIDE BY CARLEEN CUELLAR. PT SLEEPING. NO S/S OF DISTRESS NOTED. HEPARIN DRIP @ 11ML/HR ORDERED.
[2016-09-01 16:00] VITALS: BP 106/60
--- NOTE | 2016-09-01 18:41 | NUR ---
PT RESTING IN BED. NO S/S OF ACUTE DISTRESS. HEPARIN DRIP RUNNING AT 9ML/HR.
--- NOTE | 2016-09-01 19:05 | NUR ---
SBAR REPORT GIVEN TO CARLEEN CASTELLANO AT PT BEDSIDE. NO S/S OF ACUTE DISTRESS.
--- NOTE | 2016-09-01 19:10 | NUR ---
REPORT RECEIVED FROM DAY NURSEJANEL. PATIENT RESTING IN BED, WATCHING TELEVISION. NO RESPIRATORY DISTRESS, SOB, OR DISCOMFORT. INITIAL ASSESSMENT AND BODY CHECK DONE. PATIENT DENIES ANY CHEST PAIN AT THIS TIME. PATIENT IS AOX3, FORGETFUL, REDNESS NOTED TO BUTTOCKS/PERINEAL AREA, TWO IV ACCESS TO RIGHT HAND 24G, BOTH PORTS PATENT. DISCUSSED PLAN OF CARE, MEDICATION REGIMENT, AND PAIN MANAGEMENT WITH PATIENT. PLACED PATIENT ON SAFETY/FALL/PRESSURE ULCER PRECAUTIONS. CALL LIGHT LEFT WITHIN REACH, WILL CONTINUE TO MONITOR.
[2016-09-01 20:00] VITALS: BP 125/70
[2016-09-01] MEDS: traZODone 50 MG TAB PO SCH (21:37)
[2016-09-01] MEDS: ZIPRASIDONE 40 MG CAP PO SCH (21:38)
[2016-09-01] MEDS: ATORVASTATIN 20 MG TAB PO SCH (21:39)
--- NOTE | 2016-09-01 22:11 | NUR ---
PATIENT IN BED, SLEEPING. NO RESPIRATORY DISTRESS, SOB, OR DISCOMFORT. CALL LIGHT LEFT WITHIN REACH, WILL CONTINUE TO MONITOR.
[2016-09-02] VITALS: BP 96/48
[2016-09-02] MEDS: PIPER/TAZO 3.375GM/D5W PREMIX 50 ML IV SCH ×4 (00:10→17:01)
--- NOTE | 2016-09-02 00:49 | NUR ---
PATIENT ASLEEP. NO RESPIRATORY DISTRESS, SOB, OR DISCOMFORT. CALL LIGHT LEFT WITHIN REACH, WILL CONTINUE TO MONITOR.
--- NOTE | 2016-09-02 02:19 | NUR ---
REPORT GIVEN TO CARLEEN CLEMENT, FOR CONTINUITY OF CARE. PATIENT IN BED, RESTING. ALL NEEDS ATTENDED TO, CALL LIGHT LEFT WITHIN REACH.
--- NOTE | 2016-09-02 02:20 | NUR ---
RECEIVED PT IN STABLE CONDITION FROM CARLEEN CASTELLANO. NO SOB, NO SIGNS OF DISTRESS. 2 IV SITES 24G TO RT HAND ASYMPTOMATIC, INTACT, PATENT, IVF AND HEPARIN DRIP RUNNING PER PROTOCOL. VS STABLE. PT ON 3L O2 NC. PT DENIES PAIN AT THIS TIME. PT WITH REDNESS TOP BUTTOCK AREA, SKIN OTHERWISE INTACT. PT AOX3, CONFUSED AND FORGETFUL AT TIMES. PT BEDBOUND WITH GENERALIZED WEAKNESS. PT WITH CONDOM CATH IN PLACE DRAINING TO GALINDO BAG AT GRAVITY. PLAN OF CARE DISCUSSED WITH PT. SAFETY MEASURES IN PLACE. CALL LIGHT WITHIN REACH. WILL CONTINUE TO MONITOR.
[2016-09-02 04:00] VITALS: BP 116/58
--- NOTE | 2016-09-02 04:13 | NUR ---
VS STABLE. PT ON 3L O2 NC, NO SOB, NO SIGNS OF DISTRESS. NO C/O PAIN AT THIS TIME. IV SITES ASYMPTOMATIC, INTACT, IVF AND HEPARIN RUNNING. SAFETY MEASURES IN PLACE. CALL LIGHT WITHIN REACH. WILL CONTINUE TO MONITOR.
--- NOTE | 2016-09-02 05:48 | NUR ---
CALL FROM LISA IN LAB, PTT FOR 05 DRAW IS 64.8, FIRST THERAPEUTIC VALUE, NO CHANGE IN RATE.
--- NOTE | 2016-09-02 06:38 | NUR ---
CALL FROM LISA IN LAB, CRITICAL CO2 IS 42.9 WILL PAGE MD CUEVAS PULMONARY MD ON CASE.
--- NOTE | 2016-09-02 06:40 | NUR ---
RANI CUEVAS. WAITING FOR CALL BACK.
--- NOTE | 2016-09-02 06:50 | NUR ---
SPOKE WITH MD SOTO, REPORTED CRITICAL CO2 OF 42.9, TO SEE PT.
--- NOTE | 2016-09-02 07:01 | NUR ---
CALL FROM MD THOMPSON, REPORTED CRITICAL CO2 OF 42.9, MADE AWARE OF LAST ABG RESULT WELL.
--- NOTE | 2016-09-02 07:28 | NUR ---
ENDORSED PT IN STABLE CONDITION TO CARLEEN ALONSO. ALL NEEDS HAVE BEEN MET AT THIS TIME.
--- NOTE | 2016-09-02 07:30 | NUR ---
RECEIVED PT FROM CARIDADRN AWAKE AND LYING ON BED, AAOX3 WITH PERIODS OF CONFUSION, WITH O2 ON 3LPM, NO S/S OF RESPIRATORY DISTRESS OR DISCOMFORT, WITH IV ON RIGHT HAND 24G INFUSING HEPARIN DRIP WELL. WITH IV ALSO ON RIGHT HAND INFUSING FLUIDS WELL. WITH CONDOM CATHETER CONNECTED TO URINE BAG DRAINING YELLOW URINE. FALL PRECAUTIONS ENFORCED. CALL LIGHT WIHTIN REACH, WILL CONTINUE TO MONITOR.
[2016-09-02 08:00] VITALS: BP 138/72
--- NOTE | 2016-09-02 08:02 | NUR ---
DR SOTO INFORMED OF LOW POTASSIUM AND CO2 LEVELS. WILL CARRY OUT NEW ORDERS.
[2016-09-02] MEDS ORDERED: ALBUTEROL SULFATE/IPRATROPIU 3 ML SOL IH SCH (08:10)
[2016-09-02] MEDS ORDERED: ALBUTEROL SULFATE/IPRATROPIU 3 ML SOL IH PRN (08:11)
[2016-09-02] MEDS: FUROSEMIDE 40 MG/4 ML VIAL IVP SCH ×2 (09:00→16:53)
[2016-09-02] MEDS ORDERED: POTASSIUM CHLORIDE 10 MEQ TABER PO SCH ×3 (09:00→20:00)
[2016-09-02] MEDS: ASPIRIN 325 MG TAB PO SCH (09:24)
[2016-09-02] MEDS: DIVALPROEX 500 MG TABER PO SCH ×2 (09:24→21:16)
[2016-09-02] MEDS: FOLIC ACID 1 MG TAB PO SCH (09:24)
[2016-09-02] MEDS: TAMSULOSIN 0.4 MG CAP PO SCH (09:27)
[2016-09-02] MEDS: ESCITALOPRAM 20 MG TAB PO SCH (09:27)
[2016-09-02] MEDS: LISINOPRIL 10 MG TAB PO SCH (09:27)
[2016-09-02] MEDS: buPROPion 150 MG TABER PO SCH ×2 (09:28→21:20)
[2016-09-02] MEDS: MEMANTINE 10 MG TAB PO SCH (09:28)
[2016-09-02] MEDS: PANTOPRAZOLE 40 MG TABEC PO SCH (09:28)
[2016-09-02] MEDS: clonazePAM 0.5 MG TAB PO SCH ×2 (09:32→21:21)
--- NOTE | 2016-09-02 09:35 | NUR ---
MEDS GIVEN, TOLERATED WELL. HELD LASIX D/T LOW POTASSIUM.
[2016-09-02] MEDS: SACCHAROMYCES 250 MG CAP PO SCH ×3 (09:42→21:18)
--- NOTE | 2016-09-02 10:30 | NUR ---
PT AWAKE WHILE LYING ON BED WITH DAUGHTER AT BEDSIDE. KEPT PT CLEAN AND DRY. DAUGHTER SPOKE TO DR SULLIVAN REGARDING CONDITION. ALL NEEDS MET AT THIS TIME, WILL CONTINUE TO MONITOR.
--- NOTE | 2016-09-02 11:18 | NUR ---
SS NOTE: I SPOKE WITH PT'S , EVONNE REGARDING PT'S POSSIBLE D/C PLAN TO SNF. SHE STATED THAT SHE IS IN AGREEMENT WITH PT GOING TO SNF BUT IS UNSURE IF PT WILL BE WILLING. SHE ALSO STATED THAT PT HAS BEEN TO [facility] IN THE PAST AND SHE DOES NOT WANT PT TO RETURN THERE. I SPOKE WITH CARLEEN ALCANTAR FROM [facility] (O:[phone]/C:[phone]). HE STATED THAT THEIR TEAM ALSO FEELS THAT SNF IS THE BEST DISCHARGE PLAN FOR PT. HE ALSO STATED THAT HE WILL COME SEE PT TOMORROW IN THE AFTERNOON TO DISCUSS THIS WITH PT.
--- NOTE | 2016-09-02 11:20 | NUR ---
PT REFUSES HHN AT THIS TIME SET UP PLACED BEDSIDE
[2016-09-02] MEDS ORDERED: TAMSULOSIN 0.4 MG CAP PO SCH (11:43)
[2016-09-02] MEDS: NACL 0.9% 1,000 ML IV SCH (11:59)
[2016-09-02 12:00] VITALS: BP 125/72
--- NOTE | 2016-09-02 12:40 | NUR ---
PTT LEVEL AT 44.9, HEPARIN ADJUSTED PER PROTOCOL.
--- NOTE | 2016-09-02 13:26 | NUR ---
HEPARIN DC PER ORDERS.
--- NOTE | 2016-09-02 13:30 | NUR ---
PT AWAKE WHILE LYING ON BED. PT COOPERATIVE, NO COMPLAINTS AT THIS TIME. CALL LIGHT WITHIN REACH, WILL CONTINUE TO MONMITOR.
[2016-09-02] MEDS ORDERED: BACITRACIN OINT 15000 UNITS/30 GM TUBE TP SCH (13:35)
[2016-09-02] MEDS: HYDRAGUARD CREAM TP SCH (13:40)
--- NOTE | 2016-09-02 13:40 | NUR ---
SPOKE WITH KATHARINE DURANT FROM [facility] AND INFORMED HIM OF THE ORDER FOR SAFETY NURSING EVAL AND RESPIRATORY ASSESSMENT AND MANAGEMENT WE[facility] HOME HEALTH WITH CONTINUE PHYSICAL THERAPY. HE SAID TO FAX THE REVIEW AND THE ORDER TO THE CLINIC, [phone]. HE ALSO SPOKE WITH FAHEEM DURANTPRODUCT LINE MANAGER DIRECTOR. HE SAID USUALLY THE PHYSICAL THERAPY IS DONE IN THE CLINIC. FAXED CONCURRENT REVIEW TO [facility] AT [phone] PHONE KATHARINE DURANT [phone] [phone].
[2016-09-02] MEDS ORDERED: CHLORHEXADINE GLUC 2% CLOTH TP SCH (14:00)
[2016-09-02] MEDS ORDERED: MUPIROCIN 2% OINT 22 GM TUBE TP SCH (14:00)
--- NOTE | 2016-09-02 14:22 | NUR ---
09/02/16 RD INITIAL ASSESSMENT COMPLETED PLEASE REFER TO NUTRITION ASSESSMENT UNDER CARE ACTIVITY FOR ESTIMATED NUTRITIONAL NEEDS. RD RECOMMENDATIONS: 1. CONTINUE CARDIAC DIET TOLERATED PER MD 2. ENCOURAGE INCREASED PO INTAKES AND DISCOURAGE FOODS OUTSIDE OF PATIENT DIET 3. RD WILL F/U 3-5 DAYS; MODERATE RISK. MELONY KAUR RD
--- NOTE | 2016-09-02 15:16 | NUR ---
1230 MET WITH PT AT BEDSIDE TO DISCUSS DISCHARGE PLAN. PT STATED THAT HE WANTS TO GO HOME AND DOES NOT WANT TO GO TO SNF. PT WAS IN AGREEMENT WITH HAVING HOME HEALTH SERVICES.
--- NOTE | 2016-09-02 15:35 | NUR ---
PT AWAKE WHILE LYING ON BED WITH DAUGHTER AND AT BEDSIDE. CONDOM CATHETER PULLED OUT, CHANGED AND CONNECTED TO URINE BAG, DRAINING YELLOW URINE WELL. CALL LIGHT WITHIN REACH, WILL CONTINUE TO MONITOR.
[2016-09-02] MEDS ORDERED: diphenhydrAMINE 50 MG/ML VIAL IVP SCH (15:55)
[2016-09-02 16:00] VITALS: BP 152/84
--- NOTE | 2016-09-02 16:08 | NUR ---
SS NOTE: I SPOKE WITH CARLEEN ALCANTAR [facility]. HE STATED THAT THEY DID SEND TRANSPORTATION FOR PT TO PT'S HOME SO THAT PT CAN DO PHYSICAL THERAPY AT THEIR CENTER. HE ALSO STATED THAT HE WILL AUTHORIZE ANOTHER DAY FOR PT TO STAY SO THAT HE CAN MAKE THE PROPER ARRANGEMENTS FOR PT. HE REPORTED THAT HE HAS ALREADY ARRANGED NURSING TO COME SEE PT [facility] CAREGIVER HOURS BUT HE HAS TO CHECK WITH HIS INTERDISCIPLINARY TEAM MEETING ABOUT SEEING IF THEY CAN HAVE A PHYSICAL THERAPIST COME TO PT'S HOME OR IF PT WILL STILL BE REQUIRED TO COME TO CLINIC WITH ARRANGED TRANSPORTATION. I SPOKE WITH PT, PT'S - EVONNE AND PT'S CAREGIVER - ELIER RAMIREZ. EVONNE STATED THAT THE [facility] COMES TO PICK PT UP AT 0745 AND THAT IS TOO EARLY IN THE MORNING FOR HER TO GET PT READY IN THE MORNING. I ASKED ELIER IF SHE WOULD BE WILLING TO COME AT 0700 TO GET PT READY FOR PHYSICAL THERAPY IN THE MORNING IF IT IS AUTHORIZED WITH [facility], SHE WAS IN AGREEMENT. PT REPORTED THAT HE IS IN AGREEMENT WITH GOING TO OUTPT PHYSICAL THERAPY AT [facility] IF A CAREGIVER COULD HELP HIM GET READY IN THE MORNING. CARLEEN ALCANTAR FROM [facility] MADE AWARE OF THIS INFORMATION.
--- NOTE | 2016-09-02 16:53 | NUR ---
LASIX HELD DUE TO LOW POTASSIUM
--- NOTE | 2016-09-02 17:22 | NUR ---
DR THOMPSON AT NURSES STATION
--- NOTE | 2016-09-02 17:45 | NUR ---
PER , PT HAS CHRONIC DIARRHEA AND TAKES LOMOTIL AND IMODIUM AT HOME. INFORMED DR. SOTO
--- NOTE | 2016-09-02 19:11 | NUR ---
PT ENDORSED TO CARLEEN LAGUERRE IN STABLE CONDITION FOR CONTINUITY OF CARE
--- NOTE | 2016-09-02 19:45 | NUR ---
RECEIVED PT IN STABLE CONDITION FROM AM NURSE. AWAKE,ALERT AND ORIENTED X4. WITH PERIODS OF FORGETFULNESS. BEDREST DUE TO GEN WEAKNESS. ON CONTACT ISOLATION FOR MRSA NARES. HAS IVF INFUSING WELL ON THE RT HAND #24. ANOTHER HL ON THE RT HAND #24. SKIN HAS REDNESS ON THE PERINEAL AREA. WITH CONDOM CATH TO KEEP PT CLEAN AND DRY. PLAN OF CARE DISCUSSED AND VERBALIZED UNDERSTANDING. BED ON LOW POSITION, SIDE RAILS UP X2. CALL LIGHT PLACED WITHIN EASY REACH. WILL CONTINUE TO MONITOR.
[2016-09-02 20:00] VITALS: BP 123/71
--- NOTE | 2016-09-02 21:00 | NUR ---
HAS X1 SOFT BM. PERINEAL AREA CLEANED AND KEPT DRY. HYDRA GUARD CREAM APPLIED TO REDDENED AREAS.
[2016-09-02] MEDS: traZODone 50 MG TAB PO SCH (21:17)
[2016-09-02] MEDS: ZIPRASIDONE 40 MG CAP PO SCH (21:18)
[2016-09-02] MEDS: ATORVASTATIN 20 MG TAB PO SCH (21:20)
--- NOTE | 2016-09-02 23:00 | NUR ---
SLEEPING AT THIS TIME. NO S/S OF ANY DISCOMFORT NOR DISTRESS NOTED.
[2016-09-03 00:35] VITALS: BP 132/70
[2016-09-03] MEDS: PIPER/TAZO 3.375GM/D5W PREMIX 50 ML IV SCH ×3 (00:51→11:16)
[2016-09-03] MEDS: HYDRAGUARD CREAM TP SCH ×2 (00:52→12:11)
--- NOTE | 2016-09-03 02:00 | NUR ---
SLEEPING WELL. NO ACUTE DISTRESS NOTED.
--- NOTE | 2016-09-03 04:00 | NUR ---
SLEEPING AT THIS TIME. NO S/S OF ANY DISCOMFORT NOR PAIN NOTED.
[2016-09-03] MEDS ORDERED: PANTOPRAZOLE 40 MG TABEC PO SCH (06:30)
--- NOTE | 2016-09-03 07:10 | NUR ---
ENDORSED PT IN STABLE CONDITION TO AM NURSE.
--- NOTE | 2016-09-03 07:11 | NUR ---
RECEIVED PT REPORT AT BEDSIDE FOR CONTINUITY OF CARE. PT IS SLEEPING. I WILL BE BACK TO ASSESS PT LATER. I AM AWARE OF THIS PT. I HAD HIM THURSDAY. NOTED THE R HAND 22G NS INFUSING AT 20ML/HR. CALL LIGHT WITHIN REACH.
--- NOTE | 2016-09-03 07:50 | NUR ---
PT IS AWAKE AN ORIENTED. I INTRODUCED MYSELF AND UPDATED THE BOARD. HE REMEMBERED ME FROM THE OTHER DAY. HE ASKED ME WHAT DAY IT WAS TODAY. EXPLAINED TO HIM IT IS [place], 09/03. HE ASKED IF HE IS GOING HOME TODAY. I EXPLAINED IT IS UP TO THE DRS. NO ORDERS AT THIS TIME. HIS V/S IS WITHIN RANGE. HE IS BEDBOUND STILL. NOTED THE CONDOM CATH WITH GALINDO BAG. HE HAS SOME REDNESS ON HIS PERINEAL AREA. LBM WAS NOTED 09/02 X 3. HIS IV IS INTACT AND PATENT. NO SIGNS OF REDNESS OR INFILTRATION. THE DRS CAME BACK. TOLD HIM THAT HE WILL BE TRANSFERRED TO A REHAB FACILITY BEFORE HE CAN GO HOME. PT AGREED. PT HAS NO OTHER COMPLAINTS. WILL CONTINUE TO MONITOR PT.
[2016-09-03 08:00] VITALS: BP 126/65
[2016-09-03] MEDS ORDERED: CALCIUM ACETATE 667 MG TAB PO SCH (08:00)
[2016-09-03] MEDS ORDERED: MUPIROCIN 2% OINT 22 GM TUBE TP SCH (09:00)
[2016-09-03] MEDS ORDERED: CHLORHEXADINE GLUC 2% CLOTH TP SCH (09:00)
[2016-09-03] MEDS: buPROPion 150 MG TABER PO SCH (09:15)
[2016-09-03] MEDS: SACCHAROMYCES 250 MG CAP PO SCH (09:15)
[2016-09-03] MEDS: FUROSEMIDE 40 MG/4 ML VIAL IVP SCH (09:15)
[2016-09-03] MEDS: ASPIRIN 325 MG TAB PO SCH (09:15)
[2016-09-03] MEDS: LISINOPRIL 10 MG TAB PO SCH (09:16)
[2016-09-03] MEDS: FOLIC ACID 1 MG TAB PO SCH (09:16)
[2016-09-03] MEDS: ESCITALOPRAM 20 MG TAB PO SCH (09:16)
[2016-09-03] MEDS: clonazePAM 0.5 MG TAB PO SCH (09:17)
[2016-09-03] MEDS: MEMANTINE 10 MG TAB PO SCH (09:17)
[2016-09-03] MEDS: DIVALPROEX 500 MG TABER PO SCH (09:17)
--- NOTE | 2016-09-03 09:25 | NUR ---
ADMINISTERED MORNING MEDS. PT TOLERATED WELL. REQUESTING ORANGE JUICE. ALL SAFETY MEASURES IN PLACE. ALL NEEDS MET. WILL BE BACK TO CHECK ON PT.
--- NOTE | 2016-09-03 10:08 | NUR ---
Sweta IS HERE TO WORK WITH PT. PT HAD A LOOSE BM. THEY ARE CLEANING HIM UP. I OFFERED TO ASSIST, THEY SAID IT WAS OK. PT IS WEARING A DIAPER/BRIEFS PER PT'S REQUEST. BROUGHT THEM. THEY WILL WALK HIM. WILL CONTINUE TO MONITOR PT.
--- NOTE | 2016-09-03 10:20 | NUR ---
PER P.T., PT DID WELL BUT BECAME SOB WITH SOME EXERTION. HE WANTED TO GO BACK TO HIS ROOM AFTER AMBULATING DOWN THE CHAPMAN. PT SAT STILL REMAINED IN THE 97% ON ROOM AIR BUT HIS HR WENT UP TO 104. HE IS BACK IN BED, WITH NC IN PLACE. PT IS COMFORTABLE AND RESTING COMFORTABLY. WILL CONTINUE TO MONITOR PT. Addendum: 09/03/16 at 1035 by Adelaida Crowley RN [phone]: RECONNECTED PT WITH IV.
--- NOTE | 2016-09-03 11:04 | NUR ---
FAXED CONCURRENT REVIEW TO [facility] [phone] PHONE KATHARINE [phone] KRISTEL [phone] LEFT MESSAGE FOR KATHARINE TO CALL ME ABOUT PATIENT NOW AGREEING TO SNF. SPOKE WITH KRISTEL AND INFORMED HER THAT PATIENT NOW AGREES TO SNF.
[2016-09-03] MEDS: NACL 0.9% 1,000 ML IV SCH (11:16)
--- NOTE | 2016-09-03 11:51 | NUR ---
RECEIVED A CALL FROM KRISTEL AT [facility]. SHE SAID FOR SNF, FAX INQUIRY TO [facility] [phone] PHONE [phone]. FAXED INQUIRY.
--- NOTE | 2016-09-03 11:54 | NUR ---
PT'S AND PSYCHOLOGISTS HERE. PER PT'S AND PREPARER SAMPLES AND REPAIRS, PT HAS CHRONIC DIARRHEA. HE TAKES IMMODIUM TID AT HOME. WOULD LIKE AN RX FOR IMMODIUM. SPOKE TO DR. SOTO, WILL ORDER.
[2016-09-03] MEDS ORDERED: DIPHENOXYLATE /ATROPINE 2.5 MG TAB PO PRN (11:55)
[2016-09-03] MEDS ORDERED: FUROSEMIDE40 M1 PO (12:17)
[2016-09-03] MEDS ORDERED: BACTROBAN 2%20 MG/GM TP (12:21)
[2016-09-03] MEDS ORDERED: CLINDAMYCIN300 MG PO (12:21)
[2016-09-03] MEDS ORDERED: FLORASTOR 33 MG1 CAP PO (12:21)
[2016-09-03] MEDS ORDERED: LEVAQUIN750 MG PO (12:21)
[2016-09-03] MEDS ORDERED: APLICARE ANTIS118 M2 TP (12:21)
--- NOTE | 2016-09-03 13:31 | NUR ---
RECEIVED A CALL FROM KRYSTA FROM [facility]. SHE HAS ACCEPTED THE PATIENT. HE WILL GO TO ROOM 35A UNDER DR. VICTORIA CALL REPORT TO [phone]. [phone] [phone]. I CALLED [facility] AND SPOKE WITH KRISTEL AND INFORMED HER. SHE SAID THE AUTH FOR [facility] IS . SHE SAID TO HAVE KRYSTA FROM [facility] CALL HER FOR AUTH. I INFORMED KRYSTA. I SPOKE WITH ALISA DURANT AND GAVE HER THE INFORMATION ABOUT [facility]. DR. SOTO INFORMED AND DR. SULLIVAN INFORMED. CALLED [facility] AND SET UP WC TRANSPORT FOR 2:30P.MMelissa CUELLAR RN AWARE.
--- NOTE | 2016-09-03 13:42 | NUR ---
NOTIFIED PT THAT WE HAVE PLACEMENT FOR HIM AT [facility] IN [facility], BED 35A. AND LOGGING TRUCK DRIVER IS GONE. WILL CONTACT . [phone]. PT VERBALIZED UNDERSTANDING. PER PANTOGRAPH MACHINE OPERATOR, TRANSPORTATION WILL BE HERE BY 2:30PM.
--- NOTE | 2016-09-03 14:08 | NUR ---
PT SPOKE WITH . AWARE. PER DR. SULLIVAN, D/C IV AND D/C CONDOM CATH. [facility]ES BOATMAN WILL BE GETTING PT READY TO LEAVE.
--- NOTE | 2016-09-03 14:11 | NUR ---
CALLED [facility] TO GIVE REPORT AT [phone]. SPOKE TO CARLEEN MONCADA. GAVE FULL REPORT. ANSWERED ALL QUESTIONS. WILL CONTINUE TO PREP FOR DC.
--- NOTE | 2016-09-03 14:23 | NUR ---
SPOKE TO MULTI OPERATION FORMING MACHINE SETTER. GAVE HER INFORMATION AND ADDRESS, PHONE NUMBER REGARDING TRANSFER. ANSWERED ALL QUESTIONS.
--- NOTE | 2016-09-03 15:00 | NUR ---
PT IN ORANGE GOWN, WITH DIAPER ON. PT GIVEN DC EDUCATION. PT VERBALIZED UNDERSTANDING. SIGNED ALL PAPERS. DC'D IV AND CONDOM CATH. REMOVED ALL ID BANDS. PT WHEELED OUT BY TRANSPORTER W/ PT'S PERSONAL BELONGINGS.
== END 2016-09-03 15:00 | DRG 280 ==
LOC: MED 13:05 → MTU 15:27
PROVIDERS: ADMIT Student in an Organized Health Care Education/Training Program; ATTEND Student in an Organized Health Care Education/Training Program
DX: I11.0 Hypertensive heart disease with heart failure (principal); J69.0 Pneumonitis due to inhalation of food and vomit; I21.4 Non-ST elevation (NSTEMI) myocardial infarction; N17.0 Acute kidney failure with tubular necrosis; E43 Unspecified severe protein-calorie malnutrition; J96.00 Acute respiratory failure, unspecified whether with hypoxia or hypercapnia; G93.40 Encephalopathy, unspecified; Z68.42 Body mass index [BMI] 45.0-49.9, adult; I50.33 Acute on chronic diastolic (congestive) heart failure; I42.9 Cardiomyopathy, unspecified; G90.9 Disorder of the autonomic nervous system, unspecified; F31.9 Bipolar disorder, unspecified; E78.5 Hyperlipidemia, unspecified; F03.90 Unspecified dementia, unspecified severity, without behavioral disturbance, psychotic disturbance, mood disturbance, and anxiety; K21.9 Gastro-esophageal reflux disease without esophagitis; I35.0 Nonrheumatic aortic (valve) stenosis; N40.0 Benign prostatic hyperplasia without lower urinary tract symptoms; E83.51 Hypocalcemia; E87.6 Hypokalemia; E83.42 Hypomagnesemia; Z88.2 Allergy status to sulfonamides; Z91.19 Patient's noncompliance with other medical treatment and regimen; Z90.49 Acquired absence of other specified parts of digestive tract

== ENCOUNTER 2016-09-20 16:05 | Inpatient (IN) | payer OTHER, MEDICAID ==
[~2016-09-20] VITALS: Ht 167.6 cm; Wt 85.7 kg
[~2016-09-20 16:05] MED LIST changes: +APLICARE ANTIS118 M2 TP; +BACTROBAN 2%20 MG/GM TP; +CLINDAMYCIN300 MG PO; +FLORASTOR 33 MG1 CAP PO; +FUROSEMIDE40 M1 PO
--- NOTE | 2016-09-20 16:05 | NUR ---
Patient BIBA BLS, transferred to bed 1. RN evaluating patient at bedside.
[2016-09-20 16:12] VITALS: BP 82/44
--- NOTE | 2016-09-20 16:13 | NUR ---
BIB EMS, STATES PT. IS BASELINE FOR HIM, SHE TOLD EMS HE HAS BEEN HYPOTENSIVE X 1 MONTH, AAOX3, NO VISIBLE SIGNS OF DISTRESS NOTED, BREATHING EVEN AND UNLABORED, PT. ON O2 2L VIA NC FROM HOME, PT. NON AMBULATORY AT THIS TIME, WILL CONTINUE TO MONITOR
[2016-09-20] MEDS ORDERED: NACL 0.9% 1,000 ML IV ONE (16:20)
--- NOTE | 2016-09-20 16:42 | NUR ---
Dr. Choi evaluating patient at bedside.
[2016-09-20] MEDS ORDERED: SODIUM POLYSTYRENE 15 GM/60 ML UDBTL PO ONE (17:55)
[2016-09-20] MEDS ORDERED: NACL 0.9% 500 ML IV ONE (18:40)
[2016-09-20] MEDS ORDERED: ONDANSETRON 4 MG/2 ML VIAL IVP PRN (19:00)
[2016-09-20] MEDS ORDERED: ACETAMINOPHEN 325 MG TAB PO PRN (19:00)
[2016-09-20] MEDS ORDERED: HYDROcodone/APAP 5/325 MG 1 TAB TAB PO PRN (19:00)
[2016-09-20] MEDS ORDERED: MORPHINE SULFATE 2 MG/ML SYR IVP PRN (19:00)
[2016-09-20] MEDS ORDERED: DIPHENOXYLATE /ATROPINE 2.5 MG TAB PO PRN (19:05)
--- NOTE | 2016-09-20 19:09 | NUR ---
Pt report given to DAVEY DURANT. Transfer of care at this time.
--- NOTE | 2016-09-20 19:09 | NUR ---
REPORT GIVEN TO SHAKEEL DURANT IN TELE
--- NOTE | 2016-09-20 19:14 | NUR ---
Pt report given to CARLEEN BECKFORD BY CARLEEN SIMMS. Transfer of care at this time.
[2016-09-20] MEDS ORDERED: ALBUTEROL SULFATE/IPRATROPIU 3 ML SOL IH PRN (19:15)
--- NOTE | 2016-09-20 19:23 | NUR ---
PT ARRIVED TO UNIT IN STABLE CONDITION AT THIS TIME. UNABLE TO WALK TO BED. PLACED IN ROOM 106B, ORIENTED TO UNIT.
[2016-09-20 19:36] VITALS: BP 83/46
--- NOTE | 2016-09-20 19:36 | NUR ---
SHIFT ASSESSMENT DONE. PT IS A/O X2, ALBE TO VERBALIZE NEEDS AND COMMANDS AT THIS TIME. DISCUSSED PLAN OF CARE WITH PT, VERBALIZED UNDERSTANDING. VITAL SIGNS TAKEN, PT ON 3L NASAL CANNULA WITH 96% OXYGEN SATURATION. PT IS AFEBRILE. NOTED BLOOD PRESSURE 83/46 (S/D), PLACED PT IN [place] AND PT RECEIVING SECOND BOLUS ORDERED. WILL REASSESS BP AND CONTINUE TO MONITOR. PT DENIES N/V/D, SOB, OR CHEST PAIN. ALL OTHER VS ARE STABLE. IV ACCESS NOTED TO LEFT AC #22G, PATENT AND INTACT. SKIN IS INTACT, NOTED BRUISE TO LEFT LOWER EXTREMITY AND BUE. PT HAS EDEMA TO BILATERAL FEET, PITTING +2, ELEVATED BY PILLOWS. LUNG SOUNDS ARE CLEAR, BOWEL SOUNDS ARE ACTIVE. PLACED ON SAFETY PRECAUTIONS AND CONTACT FOR HX MRSA. PLACED SCD'S. CALL LIGHT WITHIN EASY REACH. WILL CONTINUE TO MONITOR PT.
--- NOTE | 2016-09-20 20:27 | NUR ---
RT AT PT BEDSIDE, ASSESSING PT. PT STABLE.
--- NOTE | 2016-09-20 20:40 | NUR ---
MADE DR. THONY I. AWARE OF PT BLOOD PRESSURE STILL LOW AT 77/40 (S/D) AFTER TWO BOLUS OF LITERS GIVEN. NEW ORDER RECEIVED TO ADMINISTER ANOTHER, THIRD BOLUS OF NORMAL SALINE OPEN WIDE (1000ML). CHARGE NURSE AWARE. PT PLACED IN [place] AND 1L NS BOLUS ADMINISTERED OPEN WIDE. WILL CONTINUE TO MONITOR. SATURATION NOTED AT 98% ON 3L NASAL CANNULA.
[2016-09-20] MEDS: NACL 0.9% 1,000 ML IV SCH ×2 (20:42→22:01)
[2016-09-20] MEDS ORDERED: NACL 0.9% 1,000 ML IV SCH (20:50)
[2016-09-20] MEDS ORDERED: ZIPRASIDONE HCL 60 MG PO SCH (21:00)
[2016-09-20] MEDS: clonazePAM 0.5 MG TAB PO SCH (21:00)
[2016-09-20] MEDS: traZODone 50 MG TAB PO SCH (21:00)
[2016-09-20] MEDS: traMADol 50 MG TAB PO SCH (21:00)
[2016-09-20] MEDS: buPROPion 150 MG TABER PO SCH (21:00)
[2016-09-20] MEDS: ENALAPRIL 5 MG TAB PO SCH (21:00)
[2016-09-20] MEDS: ATORVASTATIN 20 MG TAB PO SCH (21:59)
[2016-09-20] MEDS: DIVALPROEX 500 MG TABER PO SCH (22:15)
--- NOTE | 2016-09-20 22:15 | NUR ---
DUE TO BLOOD PRESSURE LOW SOME SCHEDULED MEDICATIONS HELD. PT IS ABLE TO SWALLOW PILLS WHOLE ONE BY ONE OR CRUSH W/ APPLESAUCE.
--- NOTE | 2016-09-20 22:20 | NUR ---
REASSESS BP AFTER THIRD BOLUS, PT BP TRENDING UP, NOW 88/47. PT REMAIN STABLE. WILL CONTINUE TO MONITOR.
[2016-09-21] VITALS: BP 90/43
--- NOTE | 2016-09-21 00:20 | NUR ---
IVF STILL INFUSING, PT CANNULA STILL ON. VSS, BP IS NOW 90/43. PT DENIES PAIN, SOB, N/V, AND CHEST PAIN. WILL CONTINUE TO MONITOR. CALL LIGHT WITHIN REACH.
--- NOTE | 2016-09-21 01:50 | NUR ---
PT SLEEPING WELL, NO S/S OF DISTRESS. NASAL CANNULA IN PLACE. CALL LIGHT WITHIN REACH.
--- NOTE | 2016-09-21 02:25 | NUR ---
PT REMAINS STABLE, NO S/S OF DISTRESS.
--- NOTE | 2016-09-21 03:19 | NUR ---
PT VOIDED VIA URINAL OF 100ML. PT ABLE TO VERBALIZE NEED TO URINATE. URINE NOTED YELLOW CLEAR.
--- NOTE | 2016-09-21 03:50 | NUR ---
PT VSS REMAIN STABLE, BP NOTED AT TRENDING UP. NO S/S OF ACUTE DISTRESS. WILL CONTINUE TO MONITOR PT.
[2016-09-21 04:00] VITALS: BP 101/72
[2016-09-21] MEDS: traMADol 50 MG TAB PO SCH (04:16)
--- NOTE | 2016-09-21 06:05 | NUR ---
PT IS REFUSING AM MORNING LABS AT THIS TIME, DISCUSSED AND EDUCATED THE NEED FOR DRAW. PT AWARE AND VERBALIZED UNDERSTANDING, STILL REFUSING.
--- NOTE | 2016-09-21 06:20 | NUR ---
PT AT BEDSIDE SITTING IN CHAIR. NO S/S OF DISTRESS. PT SPOKE TO EVONNE, STATED HE WANTS TO GO HOME. PER EVONNE WILL COME IN TODAY.
--- NOTE | 2016-09-21 07:26 | NUR ---
PT STILL REFUSING LAB DRAW, EXPLAINED IMPORTANCE OF NEED FOR DRAW DUE TO HIGH POTASSIUM. STILL REFUSING, AND PT VERBALIZED UNDERSTANDING OF RISK. WILL NOTIFY .
--- NOTE | 2016-09-21 07:30 | NUR ---
ENDORSED PT TO MICHELLE DURANT FOR CONTINUITY OF CARE.
--- NOTE | 2016-09-21 07:32 | NUR ---
RECEIVED REPORT FROM NIGHT RN. PT RESTING IN BED. AAOX4. NO S/S OF ACUTE DISTRESS. PT ON O2 3L NC. PT DENIES PAIN. IV SITE PATENT AND INTACT. PT REFUSES AM LABS STATING " I WANT TO GO HOME". EXPLAINED IMPORTANCE OF LABS. PT VERBALIZED UNDERSTANDING. PT STILL REFUSED. 2+ PITTING EDEMA TO BILATERAL ANKLES AND FEET NOTED. CALL LIGHT WITHIN REACH. SAFETY MEASURES ENSURED. WILL CONTINUE TO MONITOR.
--- NOTE | 2016-09-21 07:35 | NUR ---
DR. BHANDARI AWARE OF PT HAD NO BOWEL MOVEMENT ALL NIGHT SINCE THE ADMINISTRATION OF KAYEXALATE AND REFUSAL OF AM LABS.
[2016-09-21 08:00] VITALS: BP 104/61
--- NOTE | 2016-09-21 08:20 | NUR ---
PT TOOK OF NASAL CANNULA. PT REFUSES TO PUT IT BACK ON. PT EDUCATED ON NEED FOR OXYGEN. PT CONTINUE TO REFUSE.
--- NOTE | 2016-09-21 08:33 | NUR ---
PT BACK ON O2 3L NC. O2 SATURATION 97%. NO S/S OF ACUTE DISTRESS. PT DENIES PAIN. WILL CONTINUE TO MONITOR.
[2016-09-21] MEDS ORDERED: SODIUM POLYSTYRENE 15 GM/60 ML UDBTL PO SCH (08:55)
[2016-09-21] MEDS: clonazePAM 0.5 MG TAB PO SCH ×2 (09:00→15:16)
[2016-09-21] MEDS ORDERED: HYDROCHLOROTHIAZIDE 25 MG TAB PO SCH (09:00)
[2016-09-21] MEDS: DIVALPROEX 500 MG TABER PO SCH ×3 (09:00→20:27)
[2016-09-21] MEDS: FOLIC ACID 1 MG TAB PO SCH ×2 (09:00→15:16)
[2016-09-21] MEDS: ENALAPRIL 5 MG TAB PO SCH (09:00)
[2016-09-21] MEDS ORDERED: MEMANTINE HCL 14 MG PO SCH (09:00)
[2016-09-21] MEDS: buPROPion 150 MG TABER PO SCH ×2 (09:00→15:18)
[2016-09-21] MEDS: ESCITALOPRAM 20 MG TAB PO SCH ×2 (09:00→15:07)
[2016-09-21] MEDS ORDERED: TAMSULOSIN 0.4 MG CAP PO SCH (09:00)
[2016-09-21] MEDS: PANTOPRAZOLE 40 MG TABEC PO SCH ×2 (09:00→15:16)
--- NOTE | 2016-09-21 09:03 | NUR ---
PT REFUSED AM MEDS. PT EDUCATED ON IMPORTANCE OF TAKING PRESCRIBED MEDICATIONS. PT VERBALIZED UNDERSTANDING. MD MADE AWARE.
--- NOTE | 2016-09-21 09:25 | NUR ---
UPON ENTERING PT'S ROOM O2 OFF. PT REFUSES TO PUT O2 ON. EXPLAINED TO PT THAT HE NEEDED TO PUT IT ON SO I COULD CALL HIS FOR HIM TO TALK TO. PT PLACED ON O2 3L NC. EVONNE MADE AWARE OF PT'S REFUSAL OF MEDS AND LABS. EVONNE MADE AWARE OF PT TAKING OFF O2. DR. NATH AT BEDSIDE. RT PAGED. WILL CONTINUE TO MONITOR.
--- NOTE | 2016-09-21 09:45 | NUR ---
cont pox placed spo2 95
--- NOTE | 2016-09-21 09:45 | NUR ---
PT HAS INCREASED RESPIRATORY RATE, PT IS GASPING. ON O2 3L NC. O2 SATURATIONS 95%. DR. NATH AND RT AT BEDSIDE. PT BEGINS SHAKING AND BECOMES VERBALLY UNRESPONSIVE. DR. NATH CALLS CODE BLUE. PT ABLE TO RESPOND TO NAME AND ER DR. Marquez SAT 100% HR 86 BP 136/52 RR 22 BLOOD SUGAR 81. PT IS PLACED ON 4L NC. NO S/S OF ACUTE DISTRESS. PT RESPONDS TO COMMANDS AND VERBALIZES UNDERSTANDING. EVONNE MADE AWARE. SHE STATES SHE WILL BE COMING TO THE HOSPITAL SOON. CALL LIGHT WITHIN REACH. SAFETY MEASURES ENSURED. WILL CONTINUE TO MONITOR.
[2016-09-21] MEDS ORDERED: LORazepam 2 MG/ML VIAL IVP SCH (10:00)
--- NOTE | 2016-09-21 10:04 | NUR ---
abg results reported to dr camejo
[2016-09-21] MEDS: NACL 0.9% 1,000 ML IV SCH ×3 (10:20→19:39)
--- NOTE | 2016-09-21 10:32 | NUR ---
AT PT'S BEDSIDE. NO S/S OF ACUTE DISTRESS. PT DENIES PAIN. VSS. IV SITE PATENT AND INTACT. CALL LIGHT WITHIN REACH. SAFETY MEASURES ENSURED. WILL CONTINUE TO MONITOR.
--- NOTE | 2016-09-21 11:16 | NUR ---
PT'S AND CABINET BUILDER AT BEDSIDE. DR. NATH AT BEDSIDE.
[2016-09-21 12:00] VITALS: BP 103/58
--- NOTE | 2016-09-21 12:58 | NUR ---
PT RESTING IN BED. NO S/S OF ACUTE DISTRESS. PT DENIES PAIN. FAMILY AT BEDSIDE. ON O2 4L NC. CALL LIGHT WITHIN REACH. SAFETY MEASURES ENSURED. WILL CONTINUE TO MONITOR.
--- NOTE | 2016-09-21 15:21 | NUR ---
PT RESTING IN BED. NO S/S OF ACUTE DISTRESS. PT DENIES PAIN. IV SITE PATENT AND INTACT. CALL LIGHT WITHIN REACH. FAMILY AT BEDSIDE. WILL CONTINUE TO MONITOR.
[2016-09-21 16:01] VITALS: BP 122/71
--- NOTE | 2016-09-21 18:13 | NUR ---
PT RESTING IN BED. NO S/S OF ACUTE DISTRESS. PT DENIES PAIN. IV SITE PATENT AND INTACT. CALL LIGHT WITHIN REACH. SAFETY MEASURES ENSURED. WILL CONTINUE TO MONITOR.
--- NOTE | 2016-09-21 19:23 | NUR ---
ENDORSED PLAN OF CARE TO NIGHT RN. PT REMAINS IN STABLE CONDITION.
--- NOTE | 2016-09-21 19:25 | NUR ---
RECEIVED PT FROM MICHELLE DURANT PT IS AAOX2 CONFUSED AND VERY ANXIOUS ON TELEMETRY SR ON 08 23 LTS VIA NC IV ON LEFT AC PATENT REPOSITIONED ON CLOSE MONITORING RESP THERAPY IS HERE AND GIVE BREATHING TX
[2016-09-21 20:00] VITALS: BP 129/71
[2016-09-21] MEDS: LORazepam 2 MG/ML VIAL IVP PRN (20:00)
--- NOTE | 2016-09-21 20:00 | NUR ---
PT VERY ANXIOUS AND SHAKING ATIVAN IS GIVEN ORDER AND ON CLOSE MONITORING NOT SOB NOTED, 02 SAT 98%
[2016-09-21] MEDS: ATORVASTATIN 20 MG TAB PO SCH (20:28)
[2016-09-21] MEDS: traZODone 50 MG TAB PO SCH (20:28)
--- NOTE | 2016-09-21 21:30 | NUR ---
PT MO;RE QUIET TKEN WELL HIS ORAL MEDIC ON TELEMETRY SR
[2016-09-22] VITALS: BP 122/65
--- NOTE | 2016-09-22 | NUR ---
PT REPOSITIONED Q2H SLEEPING WELL NOT DISTRESS NOTED IV ON LEFT AC INFUSING WELL
--- NOTE | 2016-09-22 02:00 | NUR ---
PT ON CLOSE OMONITORING NOT SOB NOTED 02 SAT 98, ON TELE SR PT SLEEPING
[2016-09-22 04:00] VITALS: BP 154/78
--- NOTE | 2016-09-22 04:00 | NUR ---
SPONGE BATH GIVEN LINEN CHANGED REPOSITIONED Q2H ON TELEMETRY ST NOT SOB NOTED
--- NOTE | 2016-09-22 06:33 | NUR ---
PT SLEEPING AFTER BEEN REPOSITIONED NOT SOB NOTED
[2016-09-22] MEDS ORDERED: DIPHENOXYLATE /ATROPINE 2.5 MG TAB PO PRN (07:01)
--- NOTE | 2016-09-22 07:25 | NUR ---
RECEIVED REPORT FROM CARLEEN KIRKPATRICK. PT IS AAOX2, CONFUSED. PT ON 3L NC O2 SAT AT 99% WITH NO S/S OF DISTRESS NOTED. LEFT AC #22. NO N/V OR PAIN INDICATED. PT ON CONTACT PRECAUTIONS WITH SIGNS POSTED ON THE WALL, PRECAUTIONS IN PLACE. REDNESS TO PERINEAL. ALL SAFETY PRECAUTIONS IN PLACE, SIDE RAILSX2, BED IN LOW POSITION, AND CALL LIGHT WITHIN REACH. WILL CONTINUE TO MONITOR.
--- NOTE | 2016-09-22 07:45 | NUR ---
IV TO LEFT AC #22, DISLODGED. CANNULA INTACT. WILL ATTEMPT IV INSERTION.
[2016-09-22 08:00] VITALS: BP 150/99
--- NOTE | 2016-09-22 08:22 | NUR ---
PATIENT HAS BEEN SCREENED AND CATEGORIZED HIGH NUTRITION RISK. PATIENT WILL BE SEEN WITHIN 1-2 DAYS OF ADMISSION. 09/21/16-09/22/[address]
--- NOTE | 2016-09-22 08:50 | NUR ---
DR ALARCON TO SEE PT. WILL FOLLOW UP ON ORDERS.
--- NOTE | 2016-09-22 09:00 | NUR ---
ATTEMPTED TO INSERT IV WITH NO SUCCESS. NOTIFIED CHARGE NURSE, CHARGE NURSE TO INSERT NEW IV.
[2016-09-22] MEDS: buPROPion 150 MG TABER PO SCH ×2 (09:09→20:10)
[2016-09-22] MEDS: ESCITALOPRAM 20 MG TAB PO SCH (09:10)
[2016-09-22] MEDS: FOLIC ACID 1 MG TAB PO SCH (09:10)
[2016-09-22] MEDS: DIVALPROEX 500 MG TABER PO SCH ×2 (09:10→20:11)
[2016-09-22] MEDS: PANTOPRAZOLE 40 MG TABEC PO SCH (09:11)
[2016-09-22] MEDS: clonazePAM 0.5 MG TAB PO SCH ×2 (09:13→20:07)
[2016-09-22] MEDS: NACL 0.9% 1,000 ML IV SCH ×2 (09:16→11:56)
--- NOTE | 2016-09-22 09:18 | NUR ---
PT TOLERATED MEDS WELL. BP 150/99, HR 86. WILL CONTINUE TO MONITOR.
--- NOTE | 2016-09-22 09:50 | NUR ---
RECEIVED CRITICAL LAB FROM THE LAB, PT IS POSITIVE FOR MRSA OF THE NARES. WILL FOLLOW UP ON ORDERS.
--- NOTE | 2016-09-22 10:00 | NUR ---
CHARGE NURSE INSERTED NEW IV TO LEFT HAND #24, PATENT AND INTACT.
[2016-09-22] MEDS: MUPIROCIN 2% OINT 22 GM TUBE TP SCH (11:51)
[2016-09-22] MEDS: CHLORHEXADINE GLUC 2% CLOTH TP SCH (11:52)
[2016-09-22 12:00] VITALS: BP 138/84
[2016-09-22] MEDS: HYDRAGUARD CREAM TP SCH (12:04)
--- NOTE | 2016-09-22 12:04 | NUR ---
PT TOLERATED MEDS WELL. WILL CONTINUE TO MONITOR.
[2016-09-22] MEDS ORDERED: MAGNESIUM OXIDE 400 MG TAB PO SCH (13:07)
--- NOTE | 2016-09-22 13:53 | NUR ---
PT TOLERATED MEDS WELL. WILL CONTINUE TO MONITOR.
--- NOTE | 2016-09-22 14:43 | NUR ---
09/22/16 RD INITIAL ASSESSMENT COMPLETED PLEASE REFER TO NUTRITION ASSESSMENT UNDER CARE ACTIVITY FOR ESTIMATED NUTRITIONAL NEEDS. RD RECOMMENDATIONS: 1. RECOMMEND LIBERALIZE DIET TO 2 GM SODIUM D/T PT POOR PO INTAKES 2. ENCOURAGE INCREASED PO INTAKES 3. RD WILL F/U 2-3 DAYS; HIGH RISK. MELONY KAUR, RD
--- NOTE | 2016-09-22 15:00 | NUR ---
FAXED INITIAL REVIEW TO [phone] PHON KATHARINE [phone] KRISTEL [phone] FARE ENFORCEMENT OFFICER
[2016-09-22 16:00] VITALS: BP 111/58
--- NOTE | 2016-09-22 19:25 | NUR ---
ENDORSED CARE TO CARLEEN PRESTON. PT IN STABLE CONDITION.
--- NOTE | 2016-09-22 19:26 | NUR ---
RECEIVED PATIENT FROM CHRISTOPHER RN FOR CONTINUITY OF CARE. PATIENT IS A&OX2, PERIODS OF CONFUSION AND AGITATION. SHIFT ASSESSMENT DONE, VS TAKEN, STABLE AT THIS TIME. NO S/S OF RESPIRATORY DISTRESS NOTED ON 3L NC. PATIENT DENIES PAIN, PT APPEARS ANXIOUS AND IS FIDGETING. IV LT HAND 24 GAUGE PATENT AND INFUSING FLUIDS WELL. PT HAS BLE PITTING EDEMA 2+ AND REDNESS TO REBECA AREA. PT ALSO HAS BRUISING ON BILATERAL UPPER EXTREMITY. PATIENT HAD A BM, CHANGED LINENS AND GOWN. SAFETY/FALL /CONTACT PRECAUTIONS ENFORCED. CALL LIGHT WITHIN REACH.
[2016-09-22 20:00] VITALS: BP 133/49
[2016-09-22] MEDS: traZODone 50 MG TAB PO SCH (20:09)
[2016-09-22] MEDS: ATORVASTATIN 20 MG TAB PO SCH (20:10)
[2016-09-22] MEDS: MAGNESIUM OXIDE 400 MG TAB PO SCH (20:10)
--- NOTE | 2016-09-22 20:10 | NUR ---
DUE MEDICATIONS ADMINISTERED, TOLERATED WELL. CHANGED PATIENT AND PROVIDED CHANGE OF LINENS. WILL CONTINUE TO MONITOR.
--- NOTE | 2016-09-22 20:25 | NUR ---
NO DISTRESS/SOB/WHEEZING NOTED AT THIS TIME. NO INDICATION FOR HHN PRN TX.
[2016-09-22] MEDS: LORazepam 2 MG/ML VIAL IVP PRN (21:26)
--- NOTE | 2016-09-22 21:26 | NUR ---
PT IS AGITATED REMOVING CLOTHES, REMOVING TELE MONITOR AND SCREAMING. MEDICATED WITH ATIVAN PER MD ORDER. VS STABLE: B/P 140/79. HR 86, O2 SAT 99%, RR 24, TEMP 99.2. IMPLEMENTED COOLING MEASURES. WILL CONTINUE TO MONITOR.
--- NOTE | 2016-09-22 23:58 | NUR ---
VS TAKEN, STABLE. REPOSITIONED PATIENT AND MADE COMFORTABLE. PT IS COOPERATIVE WITH NO S/S OF DISTRESS OR DISCOMFORT NOTED. WILL CONTINUE TO MONITOR.
[2016-09-23] VITALS: BP 129/68
[2016-09-23] MEDS: HYDRAGUARD CREAM TP SCH ×2 (01:18→11:37)
--- NOTE | 2016-09-23 02:12 | NUR ---
ASSISTED PATIENT WITH USING URINAL. TURNED PATIENT AND REPOSITIONED FOR COMFORT. WILL CONTINUE TO MONITOR.
[2016-09-23] MEDS: NACL 0.9% 1,000 ML IV SCH ×2 (02:36→17:24)
[2016-09-23 04:00] VITALS: BP 137/79
--- NOTE | 2016-09-23 04:03 | NUR ---
VS TAKEN, STABLE. REPOSITIONED PATIENT AND CHANGED LINENS, PATIENT HAD A SMALL BOWEL MOVEMENT. WILL CONTINUE TO MONITOR.
--- NOTE | 2016-09-23 06:07 | NUR ---
PT IS RESTING. NO S/S OF DISTRESS OR DISCOMFORT NOTED. WILL CONTINUE TO MONITOR.
--- NOTE | 2016-09-23 07:30 | NUR ---
ENDORSED PATIENT TO DAYSHIFT RN FOR CONTINUITY OF CARE, PATIENT IS STABLE AT THIS TIME.
--- NOTE | 2016-09-23 07:31 | NUR ---
RECEIVED REPORT FROM CARLEEN PRESTON. PT IS AAOX2, CONFUSED. PT ON 3L NC O2 SAT AT 99%. NO S/S OF DISTRESS NOTED. IV TO LEFT HAND #24, PATENT AND INTACT. REDNESS TO PERINEAL AREA. NO N/V OR PAIN INDICATED. ALL SAFETY PRECAUTIONS IN PLACE, SIDE RAILSX2, BED IN LOW POSITION, AND CALL LIGHT WITHIN REACH. WILL CONTINUE TO MONITOR.
[2016-09-23 08:00] VITALS: BP 125/64
[2016-09-23] MEDS: clonazePAM 0.5 MG TAB PO SCH ×2 (08:46→20:15)
[2016-09-23] MEDS: FOLIC ACID 1 MG TAB PO SCH (08:48)
[2016-09-23] MEDS: MAGNESIUM OXIDE 400 MG TAB PO SCH ×2 (08:49→20:13)
[2016-09-23] MEDS: PANTOPRAZOLE 40 MG TABEC PO SCH (08:49)
[2016-09-23] MEDS: ESCITALOPRAM 20 MG TAB PO SCH (08:50)
[2016-09-23] MEDS: DIVALPROEX 500 MG TABER PO SCH ×2 (08:50→20:12)
[2016-09-23] MEDS: buPROPion 150 MG TABER PO SCH ×2 (08:51→20:13)
--- NOTE | 2016-09-23 08:56 | NUR ---
VSS. PT TOLERATED MEDS WELL. HELPED PT WITH URINAL, PT VOIDED 100ML. SET UP FOOD TRAY FOR PT.PT TOLERATING DIET WELL. WILL CONTINUE TO MONITOR.
[2016-09-23] MEDS: MUPIROCIN 2% OINT 22 GM TUBE TP SCH (11:36)
[2016-09-23] MEDS: CHLORHEXADINE GLUC 2% CLOTH TP SCH (11:37)
--- NOTE | 2016-09-23 11:41 | NUR ---
PT TOLERATED MEDS WELL. PT'S BUSHRA AT BEDSIDE. WILL CONTINUE TO MONITOR.
[2016-09-23 12:00] VITALS: BP 159/93
--- NOTE | 2016-09-23 14:00 | NUR ---
PT'S AT BEDSIDE, WILL CONTINUE TO MONITOR.
--- NOTE | 2016-09-23 14:28 | NUR ---
1230 MET WITH PT AND AT BEDSIDE. PT STATED HE DOES NOT WANT TO GO TO SNF AND PLANS ON GOING HOME WHEN DISCHARGED.
--- NOTE | 2016-09-23 14:33 | NUR ---
FAXED CONCURRENT REVIEW TO [facility] [phone] PHONE KATHARINE [phone] SPOKE WITH KATHARINE FROM [facility] AND INFORMED HIM PATIENT IS REFUSING SNF AND WOULD PROBABLY BE DISCHARGED TOMORROW.
[2016-09-23 16:00] VITALS: BP 134/73
--- NOTE | 2016-09-23 16:00 | NUR ---
TALKED TO PT, PT AWARE OF POSSIBLE DISCHARGE TOMORROW.
--- NOTE | 2016-09-23 16:10 | NUR ---
DR DIAZ IN TO SEE PT. PER MD, PT ABLE TO MAKE OWN DECISIONS.
--- NOTE | 2016-09-23 17:20 | NUR ---
CHANGED IV FLUIDS. PT TOLERATING WELL. DR NATH IN TO SEE PT. WILL FOLLOW UP ON ORDERS.
--- NOTE | 2016-09-23 18:52 | NUR ---
ALL NEEDS MET AT THIS TIME.
--- NOTE | 2016-09-23 19:30 | NUR ---
RECEIVED REPORT FROM CHRISTOPHER SOW RN AT BEDSIDE. PT IS ALERT AWAKE ORIENTED X2 WITH PERIOD OF CONFUSION. INITIAL ASSESSMENT DONE. NO S/S OF RESPIRATORY DISTRESS OR SOB NOTED. NO C/O PAIN OR ANY DISCOMFORT AT THIS TIME. PLAN OF CARE REVIEWED TO PT AND VERBALIZED UNDERSTANDING AND NEED TO BE REINFORCED. CALL LIGHT WITHIN REACH. WILL CONTINUE TO MONITOR.
[2016-09-23 20:00] VITALS: BP 125/72
[2016-09-23] MEDS: traZODone 50 MG TAB PO SCH (20:12)
[2016-09-23] MEDS: ATORVASTATIN 20 MG TAB PO SCH (20:13)
[2016-09-24] VITALS: BP 122/76
--- NOTE | 2016-09-24 00:10 | NUR ---
PT IS SLEEPING RIGHT NOW BUT EASILY AROUSBLE. NO S/S OF ANY DISCOMFORT AT THIS TIME. ALL NEEDS ARE ATTENDED. CALL LIGHT WITHIN REACH. WILL CONTINUE TO MONITOR.
[2016-09-24] MEDS: HYDRAGUARD CREAM TP SCH ×2 (01:09→11:59)
[2016-09-24] MEDS: LORazepam 2 MG/ML VIAL IVP PRN (02:28)
[2016-09-24 04:00] VITALS: BP 129/77
--- NOTE | 2016-09-24 05:00 | NUR ---
AM CARE RENDERED. BED LINEN CHANGED. REPOSITIONED PATIENT. KEPT CLEAN AND DRY. CALL LIGHT WITHIN REACH. WILL CONTINUE TO MONITOR.
[2016-09-24] MEDS: NACL 0.9% 1,000 ML IV SCH (05:42)
--- NOTE | 2016-09-24 07:20 | NUR ---
PT HAS NO S/S OF ANY DISCOMFORT. PLAN OF CARE ENDORSED TO ALISA DURANT AT BEDSIDE FOR CONTINUITY OF CARE.
--- NOTE | 2016-09-24 07:21 | NUR ---
RECEIVED PT FROM THE LEGAL DIRECTOR NURSE AT BEDSIDE. PT IS ALERT AND ORIENTED. I REMEMBER THIS PT. I RE-INTRODUCED MYSELF. I UPDATED THE BOARD. NOTED THE IV IN L HAND 24G NS AT 80ML/HR. NO COMPLAINTS. BLE EDEMA, PITTING +2 NOTED. NC O2 AT 2L. WILL CONTINUE TO MONITOR PT.
--- NOTE | 2016-09-24 07:50 | NUR ---
V/S WITHIN NORMAL. NO SIGNS OF DISTRESS. NO PAIN. CALL LIGHT WITHIN REACH. ALL SAFETY MEASURES IN PLACE. WILL CONTINUE TO MONITOR PT.
[2016-09-24 08:00] VITALS: BP 142/88
[2016-09-24] MEDS: DIVALPROEX 500 MG TABER PO SCH (09:44)
[2016-09-24] MEDS: buPROPion 150 MG TABER PO SCH (09:44)
[2016-09-24] MEDS: FOLIC ACID 1 MG TAB PO SCH (09:44)
[2016-09-24] MEDS: clonazePAM 0.5 MG TAB PO SCH (09:45)
[2016-09-24] MEDS: MAGNESIUM OXIDE 400 MG TAB PO SCH (09:46)
[2016-09-24] MEDS: ESCITALOPRAM 20 MG TAB PO SCH (09:46)
[2016-09-24] MEDS: PANTOPRAZOLE 40 MG TABEC PO SCH (09:46)
--- NOTE | 2016-09-24 09:50 | NUR ---
ADMINISTERED MORNING MEDS. PT TOLERATED WELL. NO COMPLAINTS. WILL CONTINUE TO MONITOR PT.
--- NOTE | 2016-09-24 10:22 | NUR ---
SHAYY NOTE CONCURRENT REVIEW FAXED TO [facility] / FAX# [phone], ATTN: KATHARINE #[phone] Addendum: 09/24/16 at 1423 by Dell Gauthier RN CORRECTION; KATHARINE# [phone]
[2016-09-24] MEDS: CHLORHEXADINE GLUC 2% CLOTH TP SCH (11:57)
[2016-09-24] MEDS: MUPIROCIN 2% OINT 22 GM TUBE TP SCH (11:57)
[2016-09-24 12:00] VITALS: BP 169/73
--- NOTE | 2016-09-24 12:20 | NUR ---
IS HERE TO ANIMAL PATHOLOGY TEACHER PT. WILL GET ORDERS FROM THE DRMelissa AND WILL GET PAPER WORK STARTED. PT IS STABLE. SITTING IN A CHAIR IN HIS ROOM. WOULD LIKE TO GO HOME SOON.
--- NOTE | 2016-09-24 12:30 | NUR ---
SHAYY NOTE SPOKE W/ SHAYY ALCANTAR FOR [facility]. MADE AWARE THAT PATIENT WILL BE GOING HOME TODAY AND HAVE ORDERS TO CONTINUE HOME HEALTH. PATIENT WILL BE FOLLOWED UP BY INSURANCE AND WILL CONTINUE SERVICE.
--- NOTE | 2016-09-24 13:30 | NUR ---
WENT OVER THE DISCHARGE EDUCATION WITH PT AND SPOUSE. ANSWERED ALL QUESTIONS. PT VERBALIZED UNDERSTANDING. PT TO FOLLOW UP WITH HIS PCP/PREETI, IN [place]. HE IS GOING HOME WITH HOME HEALTH. [facility] WILL ALSO F/U WITH PT. REMOVED IV, CANNULA INTACT. NO BLEEDING NOTED. REMOVED ALL ARM BANDS. NO COMPLAINTS AT THIS TIME. WILL CHANGE INTO HIS OWN CLOTHES AND GATHER ALL PERSONAL BELONGINGS. WILL LET ME KNOW WHEN THEY ARE READY TO LEAVE.
--- NOTE | 2016-09-24 13:35 | NUR ---
WHEELED PT OUT IN A WHEELCHAIR TO THE FRONT, WITH AND SCRAPER HAND BY HIS SIDE. THEY ARE CARRYING HIS PERSONAL BELONGINGS. PT IS IN STABLE CONDITION.
--- NOTE | 2016-09-24 16:18 | NUR ---
PHYSICAL THERAPY CO-SIGN The Physical Therapy Progress Notes documented by [employer] have been reviewed. Reviewed/Co-Signed by: Cherelle Juárez PT Documentation Done by:B[facility] [employer] IMPLEMENTATION ADVISOR WILL BENEFIT W/ P.T. AFTER ACUTE STAY. Addendum: 09/25/16 at 1025 by Cherelle Juárez PT Amended: Links added.
== END 2016-09-24 13:35 | disposition home health service (06) | DRG 314 ==
LOC: MED 16:05 → MTU 18:29
PROVIDERS: ADMIT Student in an Organized Health Care Education/Training Program; ATTEND Student in an Organized Health Care Education/Training Program
DX: I95.9 Hypotension, unspecified (principal); N17.0 Acute kidney failure with tubular necrosis; G93.41 Metabolic encephalopathy; E43 Unspecified severe protein-calorie malnutrition; F31.60 Bipolar disorder, current episode mixed, unspecified; F03.90 Unspecified dementia, unspecified severity, without behavioral disturbance, psychotic disturbance, mood disturbance, and anxiety; I50.9 Heart failure, unspecified; E78.5 Hyperlipidemia, unspecified; K21.9 Gastro-esophageal reflux disease without esophagitis; N40.0 Benign prostatic hyperplasia without lower urinary tract symptoms; K52.9 Noninfective gastroenteritis and colitis, unspecified; E87.5 Hyperkalemia; E83.39 Other disorders of phosphorus metabolism; E83.42 Hypomagnesemia; I11.0 Hypertensive heart disease with heart failure; F19.10 Other psychoactive substance abuse, uncomplicated; J44.9 Chronic obstructive pulmonary disease, unspecified; J45.909 Unspecified asthma, uncomplicated; Z79.899 Other long term (current) drug therapy; Z88.2 Allergy status to sulfonamides; Z86.73 Personal history of transient ischemic attack (TIA), and cerebral infarction without residual deficits; Z74.01 Bed confinement status; Z99.3 Dependence on wheelchair; Z90.49 Acquired absence of other specified parts of digestive tract; Z68.30 Body mass index [BMI] 30.0-30.9, adult

== ENCOUNTER 2016-10-28 16:30 | Emergency (ER) | payer OTHER, MEDICAID ==
[~2016-10-28] VITALS: Ht 177.8 cm; Wt 108.9 kg
--- NOTE | 2016-10-28 16:29 | NUR ---
PT BIBA IN FULL ARREST, CPR STARTED AND PT WAS BAGGED WITH 100% FIO2, ACLS DRUGS WERE GIVEN AND PT WAS SHOCKED MANY TIMES AT 1643 DR. WILLIAMSON INTUBATED PT WITH 7.5 ET TUBE AT 22 CM AT RIGHT CORNER OF MOUTH, VENT SETTINGS AC 12 VT 500 PEEP 5 FIO2 100% ALARMS ON AND FUNCTIONING PROPERLY, AMBU BAG AT SIDE OF VENTILATOR AND VENTILATOR IS PLUGGED INTO RED OUTLET, B\S ARE COARSE BILATERALLY, SPUTUM COLLECTION DONE AT 1705 LARGE AMT OF BRIGHT RED BLOOD, PT IS UNRESPONSIVE AT THIS TIME
[~2016-10-28 16:30] MED LIST changes: -APLICARE ANTIS118 M2 TP; +ATOR10TA PO; +ATRO1TAB PO; -BACTROBAN 2%20 MG/GM TP; +BUPR150T12 PO; -CLEOCIN HCL300 MG PO; -CLINDAMYCIN300 MG PO; +CLON0.5T PO; -DEPAKOTE ER500 MG PO; -DESYREL50 MG PO; +DIVA500T1 PO; +ESCI10TA PO; +ESOM40EC PO; -FLOMAX0.4 MG PO; -FLORASTOR 33 MG1 CAP PO; -FLORASTOR250 MG PO; -FOLATE1 MG PO; +FOLI1TAB19 PO; -FUROSEMIDE40 M1 PO; -GEODON60 MG PO; +HYDR-4452 PO; +IMO2 PO; -IMODIUM2 MG PO; -KLONOPIN0.5 MG PO; -LEVAQUIN750 MG PO; -LEXAPRO10 MG PO; -LIPITOR10 MG PO; -LOMOTIL 0.025 M1 TA1 PO; -MICROZIDE12.5 MG PO; -NAMENDA XR14 MG PO; -NEXIUM40 MG PO; -NORCO 10/325 MG1 TAB PO; +PANT40EC PO; -PROTONIX40 MG PO; +TAMS0.4C96 PO; +TRAZ-286 PO; -ULTRAM50 MG PO; -VASOTEC10 MG PO; -WELLBUTRIN SR150 MG PO; -ZESTRIL10 MG PO; +ZIPR60CA1 PO; -ZOCOR20 MG PO; +[UNRECOGNIZED DRUG - CODE] PO
--- NOTE | 2016-10-28 16:30 | NUR ---
Patient was BIBA Full Arrest ALS and taken to bed 03 via gurney per EMS. ME 152 at bedside.
--- NOTE | 2016-10-28 16:30 | NUR ---
Dr. Choi at bedside; RT at bedside.
--- NOTE | 2016-10-28 16:35 | NUR ---
PT BIBA IN FULL CARDIAC ARREST. PER STAMPER BLOCKER PT DOWN APPROXIMATELY 10 MINUTES BEFORE EMS ARRIVED ON SCENE. OPA PLACED IN FIELD W/EPI X4 ADMINISTERED WELL 1 DOSE OF NARCAN.
--- NOTE | 2016-10-28 16:46 | NUR ---
PT PLACED ON VENTILATOR AC RR 12 TIDAL VOLUME 500 FIO2 100%, PEEP +5 PT INTUBATED WITH 7.5 ET TUBE SECURED AT 22CM ON THE LIP
[2016-10-28 16:50] VITALS: BP 108/68
[2016-10-28 16:54] VITALS: BP 0/0
[2016-10-28] MEDS ORDERED: NACL 0.9% 1,000 ML IV ONE (16:55)
[2016-10-28] MEDS ORDERED: AMIODARONE 450 MG in DEXTROSE 5% 250 ML IV ONE (16:55)
--- NOTE | 2016-10-28 17:02 | NUR ---
XRAY AT BEDSIDE.
[2016-10-28] MEDS ORDERED: DOPamine 400 MG/D5W PREMIX 250 ML IV ONE ×2 (17:25→17:35)
--- NOTE | 2016-10-28 17:30 | NUR ---
PER DR WILLIAMSON DOPAMINE STARTED AT 5 ML/HR BP 69/45 HR 101 SPO2 100% ON FIO2 100% RR 16
[2016-10-28] MEDS ORDERED: AMIODARONE 450 MG/9 ML VIAL IV ONE (17:39)
--- NOTE | 2016-10-28 17:40 | NUR ---
ABG DRAWN ON RR WITHOUT INCIDENT AND RESULTS WERE GIVEN TO AND DECREASED FIO2 TO 50%
[2016-10-28 17:43] LABS: BLOOD GAS PH 7.409 (7.35-7.45)
[2016-10-28 17:44] LABS: BLOOD GAS BASE EXCESS -1.5 mmol/L (-2.0-2.0); BLOOD GAS HCO3 22.8 mmol/L; BLOOD GAS O2 SAT% 98.8 % (92.0-98.5); BLOOD GAS PCO2 36.8 mmHg (20-50); BLOOD GAS PO2 162.5 mmHg
--- NOTE | 2016-10-28 17:50 | NUR ---
2ND CODE CALLED ON PT ON THE VENT, DR WILLIAMSON AT BEDSIDE
[2016-10-28 17:51] LABS: HEMATOCRIT 41.5 % (36-52); HEMOGLOBIN 13.3 g/dL (12.0-18.0); MEAN CORPUSCULAR HEMOGLOBIN 29 pg (27-31); MEAN CORPUSCULAR HGB CONC 32 g/dL (33-37); MEAN CORPUSCULAR VOLUME 89 fL (80-94); PLATELET COUNT (AUTO) 311 K/uL (140-450); RED BLOOD CELL COUNT(AUTO) 4.65 MIL/uL (4.20-6.10); RED CELL DISTRIBUTION WIDTH 15.6 % (11.6-13.7); WHITE BLOOD COUNT (AUTO) 19.6 K/uL (4.8-10.8)
[2016-10-28 18:07] LABS: INR 1.2 (0.8-1.2); PROTHROMBIN TIME 11.7 secs (10.8-13.4)
[2016-10-28 18:08] LABS: BAND % (MANUAL) 19 % (0-8); EOSINOPHILS % (MANUAL) 1 % (0-4); LYMPHOCYTES % (MANUAL) 28 % (20-46); MONOCYTES % (MANUAL) 6 % (5-12); NEUTROPHILS % (MANUAL) 46 (43-65); PLATELET ESTIMATE ADEQUATE
--- NOTE | 2016-10-28 18:10 | NUR ---
DOPAMINE INCREASE TO 10ML/HR PER MD, BP 68/49 SEE DOPAMINE CHARTING FOR VS
[2016-10-28 18:18] VITALS: BP 64/31
[2016-10-28 18:19] LABS: ALBUMIN 2.2 g/dL (3.4-5.0); ANION GAP 11.9 (8-16); CALCIUM 7.2 mg/dL (8.5-10.1); CARBON DIOXIDE 32.5 mmol/L (21-32); CREATININE 1.2 mg/dL (0.6-1.3); TOTAL BILIRUBIN 0.9 mg/dL (0.0-1.0); TOTAL PROTEIN, SERUM 4.9 g/dL (6.4-8.2)
[2016-10-28 18:20] LABS: LACTIC ACID 9.1 mmol/L (0.4-2.0)
[2016-10-28 18:21] LABS: POTASSIUM 2.4 mmol/L (3.5-5.1)
--- NOTE | 2016-10-28 18:30 | NUR ---
DOPAMINE INCREASE TO 15 ML/HR BP 85/58 SEE DOPAMINE ADMINISTRATION FOR OTHER VS
--- NOTE | 2016-10-28 18:35 | NUR ---
183 MAGESIUM GIVEN, 183 MAGNESIUM GIVEN IV, 183 CLCIUM GIVEN IV, 184 AMIODORONE GIVEN IV, SHOCK X 8 200 JOULES EACH
[2016-10-28 18:42] VITALS: BP 62/38
[2016-10-28] MEDS ORDERED: NACL 0.9% 1,000 ML IV SCH (18:51)
--- NOTE | 2016-10-28 18:54 | NUR ---
FAMILY AT BEDSIDE, DR WILLIAMSON AT BEDSIDE PT ON CONTINOUS CODE, SHOCK, MEDS GIVEN SEE CODE CHART
--- NOTE | 2016-10-28 18:54 | NUR ---
FAMILY AT BEDSIDE.
[2016-10-28] MEDS ORDERED: ONDANSETRON 4 MG/2 ML VIAL IVP PRN (18:55)
[2016-10-28] MEDS ORDERED: ACETAMINOPHEN 325 MG TAB PO PRN (18:55)
[2016-10-28] MEDS ORDERED: HYDROcodone/APAP 5/325 MG 1 TAB TAB PO PRN (18:55)
[2016-10-28] MEDS ORDERED: MORPHINE SULFATE 2 MG/ML SYR IVP PRN (18:55)
--- NOTE | 2016-10-28 18:56 | NUR ---
CPR STOP PER DR WILLIAMSON, PER FAMILY AT BEDSIDE
--- NOTE | 2016-10-28 18:59 | NUR ---
PATIENT , VENTILATOR TURNED OFF
[2016-10-28] MEDS ORDERED: POTASSIUM CHLORIDE 20% 40 MEQ/15 ML UDC ONE (19:01)
--- NOTE | 2016-10-28 19:50 | NUR ---
CHARGED NURSE CALLED [facility].
--- NOTE | 2016-10-28 19:55 | NUR ---
CHARGED NURSE CALLED REHABILITATION DIRECTOR AND SPOKE TO JESU WHICH WILL RETURN THE CALL BACK.
--- NOTE | 2016-10-28 22:10 | NUR ---
[facility]ON[facility] ASHLYN CALLED AND PROVIDED NEEDED INFO REGARDING PT'S . [facility]ONERS NEED TO CONTACT PT'S FACILITY CARE GIVERS FOR QUESTIONS. [facility] WILL CALL BACK AGAIN.
--- NOTE | 2016-10-28 23:50 | NUR ---
[facility] CALLED AND NEEDED ALL PAPERS TO FAX IN HER OFFICE. SHE MENTIONED SHE WILL CALL ME BACK FOR THE CASE NUMBER ONCED SHE RECEIVED ALL THE PAPERS.
--- NOTE | 2016-10-29 01:00 | NUR ---
CALLED UP, AND INFORMED KARY LEVY (DAUGHTER ) REGARDING THE RELEASE OF BODY FROM THE [facility] OFFICE.
--- NOTE | 2016-10-29 01:05 | NUR ---
SPOKEN TO [facility] FROM [facility] . ETA 90 MINUTES.
--- NOTE | 2016-10-29 01:20 | NUR ---
INFORMED DR. RUFFIN REGARDING THE .JUST LEAVE MESSAGES.
--- NOTE | 2016-10-29 03:40 | NUR ---
[facility]S B[facility] AND BELONGINGS, SIGNED RELEASED FORM.
== END 2016-10-28 18:56 | disposition expired ==
LOC: MED 16:30
DX: I46.9 Cardiac arrest, cause unspecified (principal); J44.9 Chronic obstructive pulmonary disease, unspecified; I50.9 Heart failure, unspecified; I63.9 Cerebral infarction, unspecified; K21.9 Gastro-esophageal reflux disease without esophagitis; I10 Essential (primary) hypertension; F03.90 Unspecified dementia, unspecified severity, without behavioral disturbance, psychotic disturbance, mood disturbance, and anxiety; Z88.2 Allergy status to sulfonamides
CPT/HCPCS: 31500; 36415; 36600; 71010; 80053; 82803; 82948; 83605; 83880; 84484; 85025; 85610; 85730; 87040; 89220; 92950; 96361; 96365; 99291; J1265; J7030; 96366; J0282; J7060